=== PATIENT | male | born 1975 | race Caucasian/White ===

== ENCOUNTER 2017-06-16 18:03 | Inpatient (IN) | payer MEDICARE, OTHER ==
[~2017-06-16] VITALS: Ht 188 cm; Wt 126.9 kg
[~2017-06-16 18:03] MED LIST: ACET325 PO; ALBU90OI6 INH; AMIT25; BACL10 PO; BISA10S PR; BUSP10 PO; CEPH500 PO; CYCL10 PO; FLUC200 PO; GABA300 PO; HYDACE5 PO; HYDMOR2 PO; LEVE500 PO; LISI5 PO; LORA.5 PO; LORA1 PO; MELO7.5 PO; METH10 PO; METH5 PO; NAPR500 PO; OXYACE5T PO; Omeprazole20 M1 PO; PANT40 PO; POTCHL20ER PO; PROACE100 PO; PROP10 PO; Percocet 5-3251 EACH PO; RXHYDMOR2 PO; SERT25 PO; SULTRIDS PO; SULTRISS PO; VENL25 PO; XARELTO20 MG PO
[2017-06-16 18:53] LABS: BASOPHILS ABSOLUTE AUTO 0.07 K/mm3 (0.00-0.23); BASOPHILS PERCENT AUTO 0 % (0-2); EOSINOPHILS ABSOLUTE AUTO 0.01 K/mm3 (0.00-0.68); EOSINOPHILS PERCENT AUTO 0 % (0-6); Hemoglobin 17.5 g/dL (13.5-17.5); IMMATURE GRAN ABSOLUTE AUTO 0.37 K/mm3 (0.00-0.10); IMMATURE GRAN PERCENT AUTO 2 % (0-1); LYMPHOCYTES ABSOLUTE AUTO 3.14 K/mm3 (0.84-5.20); LYMPHOCYTES PERCENT AUTO 14 % (21-46); MONOCYTES PERCENT AUTO 9 % (4-13); Mean Corpuscular HGB 28.1 pg (26.0-34.0); Mean Corpuscular HGB Conc 31.7 g/dL (31.5-36.5); Mean Corpuscular Volume 89 fL (80-100); Mean Platelet Volume 11.9 fL (9.1-12.4); NEUTROPHILS ABSOLUTE AUTO 16.43 K/mm3 (1.96-9.15); NEUTROPHILS PERCENT AUTO 75 % (41-73); NRBC ABSOLUTE 0.05 K/mm3 (0.00-0.02); NRBC Auto 0.2 /100 WBC (0.0-0.2); Platelet Count 253 K/mm3 (150-400); RDW Coefficient Variation 14.1 % (11.7-14.2); RDW Standard Deviation 44.3 fL (35.1-46.3); Red Blood Cell Count 6.23 M/mm3 (4.30-5.90); White Blood Cell Count 21.92 K/mm3 (4.00-11.30)
[2017-06-16 19:09] LABS: U Amphetamine Screen Not Detected; U Barbituate Screen Not Detected; U Benzodiazapine Screen Not Detected; U Buprenorphine Screen Not Detected; U Cannabinoids Screen DETECTED; U Cocaine Screen Not Detected; U Methadone Screen DETECTED; U Methamphetamine Screen Not Detected; U Opiates Screen Not Detected; U Oxycodone Screen Not Detected; U Phencyclidine Screen Not Detected; U Propoxyphene Screen Not Detected
[2017-06-16 19:12] LABS: Hematocrit 55.2 % (37.0-53.0)
[2017-06-16 19:16] LABS: Anion Gap 7 mmol/L (6-16); Blood Urea Nitrogen 19 mg/dL (8-24); Bun/Creatinine Ratio 8.8 (12.0-20.0); CO2, Blood 26 mmol/L (21-32); Calcium, Blood 8.6 mg/dL (8.5-10.1); Chloride, Blood 104 mmol/L (98-108); Creatinine, Blood 2.15 mg/dL (0.60-1.20); Glomerular Filtration Rate 36 (60-); Glucose, Blood 108 mg/dL (70-99); Potassium, Blood 4.7 mmol/L (3.5-5.5); Sodium, Blood 137 mmol/L (136-145); Troponin I 0.284 ng/mL (0.000-0.040)
[2017-06-16 19:35] LABS: Alanine Aminotransfer (ALT/SGP 27 U/L (12-78); Albumin, Blood 4.5 g/dL (3.4-5.0); Alk Phos 147 U/L (50-136); Aspartate Aminotrans (AST/SGOT 27 U/L (12-37); Bilirubin, Direct 0.1 mg/dL (0.0-0.3); Bilirubin, Indirect 0.3 mg/dL (0.1-0.7); Bilirubin, Total 0.4 mg/dL (0.1-1.0); Globulin, Blood 4.3 g/dL (2.2-4.0); Salicylate <1.7 mg/dL (2.8-20.0); Total Protein, Blood 8.8 g/dL (6.4-8.2)
[2017-06-16 19:37] LABS: Acetaminophen, Random <2.0 ug/mL (10.0-30.0); Ethanol (Alcohol), Blood, Med <3 mg/dL
[2017-06-16 20:17] LABS: International Normalized Ratio 1.26; Prothrombin Time Results 13.2 Sec (9.7-11.5)
[2017-06-16 21:03] LABS: Source, Urine Clean Catch
[2017-06-16 21:05] LABS: Bilirubin, Urine Neg (Neg); Blood, Urine 2+ (Neg); Glucose Qualitative, Urine Neg (Neg); Ketones, Urine 1+ (Neg); Leukocyte Esterase, Urine Neg (Neg); Nitrite, Urine Neg (Neg); Protein, Urine 3+ (Neg); Specific Gravity, Urine 1.025 (1.003-1.022); Urobilinogen, Urine NORM (Normal)
[2017-06-16 21:17] LABS: Appearance, Urine Hazy (Clear); Color, Urine Yellow (P-Yellow)
[2017-06-16 21:19] LABS: Amorphous Light (0-Heavy); Bacteria Few /hpf; Squamous Epithelial Cells Few /hpf (Few)
[2017-06-17 06:54] LABS: BASOPHILS ABSOLUTE AUTO 0.04 K/mm3 (0.00-0.23); BASOPHILS PERCENT AUTO 0 % (0-2); EOSINOPHILS ABSOLUTE AUTO 0.01 K/mm3 (0.00-0.68); EOSINOPHILS PERCENT AUTO 0 % (0-6); Hematocrit 47.5 % (37.0-53.0); Hemoglobin 15.1 g/dL (13.5-17.5); IMMATURE GRAN PERCENT AUTO 1 % (0-1); LYMPHOCYTES ABSOLUTE AUTO 4.06 K/mm3 (0.84-5.20); LYMPHOCYTES PERCENT AUTO 26 % (21-46); MONOCYTES ABSOLUTE AUTO 1.47 K/mm3 (0.16-1.47); MONOCYTES PERCENT AUTO 9 % (4-13); Mean Corpuscular HGB 27.6 pg (26.0-34.0); Mean Corpuscular HGB Conc 31.8 g/dL (31.5-36.5); Mean Corpuscular Volume 87 fL (80-100); Mean Platelet Volume 12.2 fL (9.1-12.4); NEUTROPHILS ABSOLUTE AUTO 10.27 K/mm3 (1.96-9.15); NEUTROPHILS PERCENT AUTO 64 % (41-73); Platelet Count 200 K/mm3 (150-400); RDW Coefficient Variation 13.3 % (11.7-14.2); Red Blood Cell Count 5.48 M/mm3 (4.30-5.90); White Blood Cell Count 15.95 K/mm3 (4.00-11.30)
[2017-06-17 07:08] LABS: Anion Gap 5 mmol/L (6-16); Blood Urea Nitrogen 13 mg/dL (8-24); Bun/Creatinine Ratio 13.8 (12.0-20.0); CO2, Blood 27 mmol/L (21-32); Calcium, Blood 7.8 mg/dL (8.5-10.1); Chloride, Blood 108 mmol/L (98-108); Creatinine, Blood 0.94 mg/dL (0.60-1.20); Glomerular Filtration Rate >60 (60-); Glucose, Blood 104 mg/dL (70-99); Sodium, Blood 140 mmol/L (136-145); Troponin I 0.451 ng/mL (0.000-0.040)
[2017-06-17 07:16] LABS: International Normalized Ratio 1.27; Prothrombin Time Results 13.3 Sec (9.7-11.5)
[2017-06-17] MEDS ORDERED: METO10 PO (15:40)
[2017-06-17] MEDS ORDERED: LEVE500 PO (15:42)
[2017-06-18 04:25] LABS: BASOPHILS ABSOLUTE AUTO 0.02 K/mm3 (0.00-0.23); BASOPHILS PERCENT AUTO 0 % (0-2); EOSINOPHILS ABSOLUTE AUTO 0.05 K/mm3 (0.00-0.68); EOSINOPHILS PERCENT AUTO 0 % (0-6); Hematocrit 44.7 % (37.0-53.0); Hemoglobin 14.4 g/dL (13.5-17.5); IMMATURE GRAN ABSOLUTE AUTO 0.08 K/mm3 (0.00-0.10); IMMATURE GRAN PERCENT AUTO 1 % (0-1); LYMPHOCYTES ABSOLUTE AUTO 3.44 K/mm3 (0.84-5.20); LYMPHOCYTES PERCENT AUTO 25 % (21-46); MONOCYTES ABSOLUTE AUTO 1.07 K/mm3 (0.16-1.47); MONOCYTES PERCENT AUTO 8 % (4-13); Mean Corpuscular HGB 27.6 pg (26.0-34.0); Mean Corpuscular HGB Conc 32.2 g/dL (31.5-36.5); Mean Corpuscular Volume 86 fL (80-100); Mean Platelet Volume 11.8 fL (9.1-12.4); NEUTROPHILS ABSOLUTE AUTO 8.93 K/mm3 (1.96-9.15); NEUTROPHILS PERCENT AUTO 66 % (41-73); Platelet Count 204 K/mm3 (150-400); RDW Coefficient Variation 13.1 % (11.7-14.2); RDW Standard Deviation 40.8 fL (35.1-46.3); Red Blood Cell Count 5.21 M/mm3 (4.30-5.90); White Blood Cell Count 13.59 K/mm3 (4.00-11.30)
[2017-06-18 04:41] LABS: LDL/HDL RATIO 1.9; Magnesium, Blood 2.1 mg/dL (1.6-2.4)
[2017-06-18 04:42] LABS: Alanine Aminotransfer (ALT/SGP 20 U/L (12-78); Albumin, Blood 3.3 g/dL (3.4-5.0); Albumin/Globulin Ratio 0.8 (0.8-1.8); Alk Phos 88 U/L (50-136); Anion Gap 8 mmol/L (6-16); Aspartate Aminotrans (AST/SGOT 20 U/L (12-37); Bilirubin, Total 0.8 mg/dL (0.1-1.0); Blood Urea Nitrogen 8 mg/dL (8-24); Bun/Creatinine Ratio 10.7 (12.0-20.0); CHOL/HDL RATIO 3.3; CO2, Blood 30 mmol/L (21-32); Calcium, Blood 8.3 mg/dL (8.5-10.1); Chloride, Blood 103 mmol/L (98-108); Cholesterol 167 mg/dL (50-200); Creatinine, Blood 0.75 mg/dL (0.60-1.20); Globulin, Blood 3.9 g/dL (2.2-4.0); Glomerular Filtration Rate >60 (60-); Glucose, Blood 97 mg/dL (70-99); HDL Cholesterol 51 mg/dL (>39); Low Density Lipoprotein Chol 97 mg/dL (0-110); Potassium, Blood 3.9 mmol/L (3.5-5.5); Sodium, Blood 141 mmol/L (136-145); Total Protein, Blood 7.2 g/dL (6.4-8.2); Triglycerides 94 mg/dL (30-160); Very Low Density Lipoprot Chol 18 mg/dL (6-32)
[2017-06-19 04:34] LABS: BASOPHILS ABSOLUTE AUTO 0.03 K/mm3 (0.00-0.23); BASOPHILS PERCENT AUTO 0 % (0-2); EOSINOPHILS ABSOLUTE AUTO 0.18 K/mm3 (0.00-0.68); EOSINOPHILS PERCENT AUTO 2 % (0-6); Hematocrit 47.6 % (37.0-53.0); Hemoglobin 15.2 g/dL (13.5-17.5); IMMATURE GRAN ABSOLUTE AUTO 0.04 K/mm3 (0.00-0.10); IMMATURE GRAN PERCENT AUTO 0 % (0-1); LYMPHOCYTES ABSOLUTE AUTO 3.66 K/mm3 (0.84-5.20); LYMPHOCYTES PERCENT AUTO 34 % (21-46); MONOCYTES ABSOLUTE AUTO 0.89 K/mm3 (0.16-1.47); MONOCYTES PERCENT AUTO 8 % (4-13); Mean Corpuscular HGB 28.3 pg (26.0-34.0); Mean Corpuscular HGB Conc 31.9 g/dL (31.5-36.5); Mean Platelet Volume 11.5 fL (9.1-12.4); NEUTROPHILS ABSOLUTE AUTO 6.08 K/mm3 (1.96-9.15); NEUTROPHILS PERCENT AUTO 56 % (41-73); Platelet Count 202 K/mm3 (150-400); RDW Coefficient Variation 13.3 % (11.7-14.2); RDW Standard Deviation 42.9 fL (35.1-46.3); Red Blood Cell Count 5.38 M/mm3 (4.30-5.90); White Blood Cell Count 10.88 K/mm3 (4.00-11.30)
[2017-06-19 04:35] LABS: Mean Corpuscular Volume 89 fL (80-100)
[2017-06-19 04:59] LABS: Alanine Aminotransfer (ALT/SGP 23 U/L (12-78); Albumin, Blood 3.7 g/dL (3.4-5.0); Albumin/Globulin Ratio 0.9 (0.8-1.8); Alk Phos 90 U/L (50-136); Anion Gap 4 mmol/L (6-16); Aspartate Aminotrans (AST/SGOT 22 U/L (12-37); Bilirubin, Total 0.8 mg/dL (0.1-1.0); Blood Urea Nitrogen 9 mg/dL (8-24); Bun/Creatinine Ratio 11.7 (12.0-20.0); CO2, Blood 36 mmol/L (21-32); Calcium, Blood 8.6 mg/dL (8.5-10.1); Chloride, Blood 101 mmol/L (98-108); Creatinine, Blood 0.77 mg/dL (0.60-1.20); Globulin, Blood 4.3 g/dL (2.2-4.0); Glomerular Filtration Rate >60 (60-); Glucose, Blood 87 mg/dL (70-99); Potassium, Blood 4.1 mmol/L (3.5-5.5); Sodium, Blood 141 mmol/L (136-145)
[2017-06-19] MEDS ORDERED: BUSP10 PO (11:25)
[2017-06-19] MEDS ORDERED: DULO30 PO (11:26)
[2017-06-19] MEDS ORDERED: FLUC200 PO (11:27)
[2017-06-19] MEDS ORDERED: Omeprazole20 M1 PO (11:29)
[2017-06-19] MEDS ORDERED: LEVFLO500 PO (11:29)
== END 2017-06-19 13:10 | disposition home or self-care (01) | DRG 917 ==
LOC: ER 18:03 → ICUW 20:28 → ICUE 20:28 → SURS 06-18 10:28
PROVIDERS: Emergency Medicine; Hospitalist; Internal Medicine
DX: T40.3X1A Poisoning by methadone, accidental (unintentional), initial encounter (principal); J18.9 Pneumonia, unspecified organism; G03.8 Meningitis due to other specified causes; N17.9 Acute kidney failure, unspecified; G40.909 Epilepsy, unspecified, not intractable, without status epilepticus; I10 Essential (primary) hypertension; G62.9 Polyneuropathy, unspecified; R09.02 Hypoxemia; K21.9 Gastro-esophageal reflux disease without esophagitis; F32.9 Major depressive disorder, single episode, unspecified; E66.9 Obesity, unspecified; Z68.38 Body mass index [BMI] 38.0-38.9, adult; Z86.718 Personal history of other venous thrombosis and embolism; Z88.5 Allergy status to narcotic agent; Z88.0 Allergy status to penicillin; Z88.2 Allergy status to sulfonamides; Z79.01 Long term (current) use of anticoagulants; Z79.899 Other long term (current) drug therapy
CPT/HCPCS: 36415; 36569; 51702; 71045; 80048; 80053; 80061; 80076; 81001; 83605; 83735; 84443; 84484; 85025; 85610; 85730; 93005; 93010; 96374; 96376; 99291; 99292; C1751; C8929; G0480; J0360; J2060; J2310; J2405; J2543; J2765; J3480; J7030; Q3014; Q9957

== ENCOUNTER 2018-03-16 18:42 | Emergency (ER) | payer MEDICARE, OTHER ==
[~2018-03-16] VITALS: Ht 188 cm; Wt 122.5 kg
[~2018-03-16 18:42] MED LIST changes: +DULO30 PO; +LEVFLO500 PO; +METO10 PO
[2018-03-16 19:42] LABS: Source, Urine Clean Catch
[2018-03-16 19:45] LABS: Appearance, Urine Clear (Clear); Blood, Urine Neg (Neg); Color, Urine Amber (P-Yellow); Glucose Qualitative, Urine Neg (Neg); Ketones, Urine 1+ (Neg); Leukocyte Esterase, Urine 1+ (Neg); Nitrite, Urine Neg (Neg); Protein, Urine 2+ (Neg); Specific Gravity, Urine 1.025 (1.003-1.022); Urobilinogen, Urine 1+ (Normal)
[2018-03-16 19:51] LABS: Bilirubin, Urine 1+ (Neg); Red Blood Cells, Urine 0-2 /hpf (0-2); White Blood Cells, Urine 0-2 /hpf (0-5)
[2018-03-16 19:52] LABS: Bacteria Mod /hpf; Squamous Epithelial Cells Not Seen /hpf (Few)
[2018-03-16 20:13] LABS: BASOPHILS ABSOLUTE AUTO 0.02 K/mm3 (0.00-0.23); BASOPHILS PERCENT AUTO 0 % (0-2); EOSINOPHILS ABSOLUTE AUTO 0.06 K/mm3 (0.00-0.68); EOSINOPHILS PERCENT AUTO 1 % (0-6); Hemoglobin 16.1 g/dL (13.5-17.5); IMMATURE GRAN ABSOLUTE AUTO 0.01 K/mm3 (0.00-0.10); IMMATURE GRAN PERCENT AUTO 0 % (0-1); LYMPHOCYTES ABSOLUTE AUTO 2.57 K/mm3 (0.84-5.20); LYMPHOCYTES PERCENT AUTO 51 % (21-46); MONOCYTES ABSOLUTE AUTO 0.47 K/mm3 (0.16-1.47); MONOCYTES PERCENT AUTO 9 % (4-13); Mean Corpuscular HGB 29.2 pg (26.0-34.0); Mean Corpuscular HGB Conc 32.9 g/dL (31.5-36.5); Mean Corpuscular Volume 89 fL (80-100); Mean Platelet Volume 11.9 fL (9.1-12.4); NEUTROPHILS ABSOLUTE AUTO 1.94 K/mm3 (1.96-9.15); NEUTROPHILS PERCENT AUTO 38 % (41-73); Platelet Count 153 K/mm3 (150-400); RDW Coefficient Variation 12.7 % (11.7-14.2); Red Blood Cell Count 5.51 M/mm3 (4.30-5.90); White Blood Cell Count 5.07 K/mm3 (4.00-11.30)
[2018-03-16 20:49] LABS: Alanine Aminotransfer (ALT/SGP 32 U/L (12-78); Albumin, Blood 4.4 g/dL (3.4-5.0); Albumin/Globulin Ratio 1.2 (0.8-1.8); Alk Phos 110 U/L (50-136); Anion Gap 6 mmol/L (6-16); Aspartate Aminotrans (AST/SGOT 23 U/L (12-37); Bilirubin, Total 0.4 mg/dL (0.1-1.0); Blood Urea Nitrogen 10 mg/dL (8-24); Bun/Creatinine Ratio 11.7 (12.0-20.0); CO2, Blood 31 mmol/L (21-32); Calcium, Blood 8.6 mg/dL (8.5-10.1); Chloride, Blood 98 mmol/L (98-108); Creatinine, Blood 0.86 mg/dL (0.60-1.20); Globulin, Blood 3.7 g/dL (2.2-4.0); Glomerular Filtration Rate >60 (60-); Glucose, Blood 80 mg/dL (70-99); Potassium, Blood 3.5 mmol/L (3.5-5.5); Sodium, Blood 135 mmol/L (136-145); Total Protein, Blood 8.1 g/dL (6.4-8.2)
[2018-03-16] MEDS ORDERED: LEVE500 PO (21:34)
[2018-03-16] MEDS ORDERED: ZESTORETIC 20-121 EA PO (21:35)
[2018-03-16] MEDS ORDERED: Prednisone50 MG PO (23:13)
[2018-03-16] MEDS ORDERED: CEPH500 PO (23:13)
[2018-03-16] MEDS ORDERED: LIDO700A20 TOP (23:13)
== END 2018-03-16 23:24 | disposition home or self-care (01) ==
LOC: ER 18:42
PROVIDERS: Emergency Medicine
DX: N39.0 Urinary tract infection, site not specified (principal); M62.838 Other muscle spasm; Z88.5 Allergy status to narcotic agent; Z79.899 Other long term (current) drug therapy
CPT/HCPCS: 36415; 80053; 81001; 85025; 87086; 99283

== ENCOUNTER 2018-06-15 13:59 | Emergency (ER) | payer MEDICARE, OTHER ==
[~2018-06-15] VITALS: Ht 185.4 cm; Wt 113.4 kg
[~2018-06-15 13:59] MED LIST changes: +LIDO700A20 TOP; +Prednisone50 MG PO; +ZESTORETIC 20-121 EA PO
[2018-06-15 14:56] LABS: Source, Urine Clean Catch
[2018-06-15 15:10] LABS: Bilirubin, Urine Neg (Neg); Blood, Urine Neg (Neg); Glucose Qualitative, Urine Neg (Neg); Ketones, Urine Neg (Neg); Leukocyte Esterase, Urine Neg (Neg); Nitrite, Urine Neg (Neg); Protein, Urine Neg (Neg); Specific Gravity, Urine 1.005 (1.003-1.022); Urobilinogen, Urine NORM (Normal)
[2018-06-15 15:11] LABS: Appearance, Urine Clear (Clear); Color, Urine Pale Yellow (P-Yellow)
[2018-06-15 15:48] LABS: BASOPHILS ABSOLUTE AUTO 0.06 K/mm3 (0.00-0.23); BASOPHILS PERCENT AUTO 1 % (0-2); EOSINOPHILS ABSOLUTE AUTO 0.19 K/mm3 (0.00-0.68); EOSINOPHILS PERCENT AUTO 2 % (0-6); Hematocrit 49.6 % (37.0-53.0); Hemoglobin 16.3 g/dL (13.5-17.5); IMMATURE GRAN ABSOLUTE AUTO 0.05 K/mm3 (0.00-0.10); IMMATURE GRAN PERCENT AUTO 1 % (0-1); LYMPHOCYTES ABSOLUTE AUTO 3.57 K/mm3 (0.84-5.20); LYMPHOCYTES PERCENT AUTO 33 % (21-46); MONOCYTES ABSOLUTE AUTO 0.76 K/mm3 (0.16-1.47); MONOCYTES PERCENT AUTO 7 % (4-13); Mean Corpuscular HGB 29.7 pg (26.0-34.0); Mean Corpuscular HGB Conc 32.9 g/dL (31.5-36.5); Mean Corpuscular Volume 90 fL (80-100); Mean Platelet Volume 11.6 fL (9.1-12.4); NEUTROPHILS ABSOLUTE AUTO 6.09 K/mm3 (1.96-9.15); NEUTROPHILS PERCENT AUTO 57 % (41-73); Platelet Count 193 K/mm3 (150-400); RDW Coefficient Variation 12.9 % (11.7-14.2); RDW Standard Deviation 42.4 fL (35.1-46.3); Red Blood Cell Count 5.49 M/mm3 (4.30-5.90); White Blood Cell Count 10.72 K/mm3 (4.00-11.30)
[2018-06-15 16:03] LABS: International Normalized Ratio 1.25
[2018-06-15 16:09] LABS: Alanine Aminotransfer (ALT/SGP 26 U/L (12-78); Albumin, Blood 4.3 g/dL (3.4-5.0); Albumin/Globulin Ratio 1.3 (0.8-1.8); Alk Phos 106 U/L (50-136); Anion Gap 6 mmol/L (6-16); Aspartate Aminotrans (AST/SGOT 18 U/L (12-37); Bilirubin, Total 0.9 mg/dL (0.1-1.0); Blood Urea Nitrogen 7 mg/dL (8-24); Bun/Creatinine Ratio 10.9 (12.0-20.0); CO2, Blood 34 mmol/L (21-32); Calcium, Blood 9.2 mg/dL (8.5-10.1); Chloride, Blood 101 mmol/L (98-108); Creatinine, Blood 0.64 mg/dL (0.60-1.20); Globulin, Blood 3.4 g/dL (2.2-4.0); Glomerular Filtration Rate >60 (60-); Glucose, Blood 74 mg/dL (70-99); Potassium, Blood 3.5 mmol/L (3.5-5.5); Sodium, Blood 141 mmol/L (136-145); Total Protein, Blood 7.7 g/dL (6.4-8.2)
== END 2018-06-15 16:49 | disposition home or self-care (01) ==
LOC: ER 13:59
PROVIDERS: Emergency Medicine
DX: S06.9X9A Unspecified intracranial injury with loss of consciousness of unspecified duration, initial encounter (principal); W18.30XA Fall on same level, unspecified, initial encounter; Z88.5 Allergy status to narcotic agent; Z79.899 Other long term (current) drug therapy; Z79.52 Long term (current) use of systemic steroids
CPT/HCPCS: 36415; 70250; 70450; 71045; 72125; 74018; 80053; 81003; 85025; 85610; 85730; 93005; 93010; 99284-25

== ENCOUNTER 2018-11-15 11:37 | Emergency (ER) | payer MEDICARE, OTHER ==
[~2018-11-15] VITALS: Ht 185.4 cm; Wt 102.1 kg
[2018-11-15] MEDS ORDERED: [UNRECOGNIZED DRUG - OTHER] (11:48)
== END 2018-11-15 13:35 | disposition home or self-care (01) ==
LOC: ER 11:37
DX: S01.311A Laceration without foreign body of right ear, initial encounter (principal); Z98.2 Presence of cerebrospinal fluid drainage device; Z88.5 Allergy status to narcotic agent; Z79.899 Other long term (current) drug therapy; Z79.01 Long term (current) use of anticoagulants; W01.0XXA Fall on same level from slipping, tripping and stumbling without subsequent striking against object, initial encounter
CPT/HCPCS: 12011; 99282-25

== ENCOUNTER 2019-06-20 21:52 | Inpatient (IN) | payer MEDICARE, OTHER ==
[~2019-06-20] VITALS: Ht 188 cm; Wt 97.1 kg
[~2019-06-20 21:52] MED LIST changes: +[UNRECOGNIZED DRUG - OTHER]
[2019-06-20 22:38] LABS: BASOPHILS ABSOLUTE AUTO 0.06 K/mm3 (0.00-0.23); BASOPHILS PERCENT AUTO 1 % (0-2); EOSINOPHILS PERCENT AUTO 2 % (0-6); Hematocrit 35.5 % (37.0-53.0); Hemoglobin 9.9 g/dL (13.5-17.5); IMMATURE GRAN ABSOLUTE AUTO 0.07 K/mm3 (0.00-0.10); IMMATURE GRAN PERCENT AUTO 1 % (0-1); LYMPHOCYTES ABSOLUTE AUTO 3.97 K/mm3 (0.84-5.20); LYMPHOCYTES PERCENT AUTO 30 % (21-46); MONOCYTES PERCENT AUTO 8 % (4-13); Mean Corpuscular HGB 21.9 pg (26.0-34.0); Mean Corpuscular HGB Conc 27.9 g/dL (31.5-36.5); Mean Corpuscular Volume 78 fL (80-100); Mean Platelet Volume 10.6 fL (9.1-12.4); NEUTROPHILS ABSOLUTE AUTO 7.83 K/mm3 (1.96-9.15); NEUTROPHILS PERCENT AUTO 59 % (41-73); Platelet Count 322 K/mm3 (150-400); RDW Coefficient Variation 14.9 % (11.7-14.2); RDW Standard Deviation 42.6 fL (35.1-46.3); Red Blood Cell Count 4.53 M/mm3 (4.30-5.90); White Blood Cell Count 13.23 K/mm3 (4.00-11.30)
[2019-06-20 22:45] LABS: Source, Urine Clean Catch
[2019-06-20 22:52] LABS: Bilirubin, Urine Neg (Neg); Blood, Urine 2+ (Neg); Glucose Qualitative, Urine Neg (Neg); Ketones, Urine 1+ (Neg); Leukocyte Esterase, Urine 1+ (Neg); Nitrite, Urine Neg (Neg); Protein, Urine 1+ (Neg); Urobilinogen, Urine 2+ (Normal)
[2019-06-20 22:53] LABS: Appearance, Urine Clear (Clear); Color, Urine Yellow (P-Yellow)
[2019-06-20 22:55] LABS: Ethanol (Alcohol), Blood, Med <3 mg/dL; Salicylate <1.7 mg/dL (2.8-20.0); Troponin I <0.015 ng/mL (0.000-0.040)
[2019-06-20 22:56] LABS: Alanine Aminotransfer (ALT/SGP 17 U/L (12-78); Albumin, Blood 3.6 g/dL (3.4-5.0); Albumin/Globulin Ratio 1.1 (0.8-1.8); Alk Phos 159 U/L (50-136); Anion Gap 5 mmol/L (6-16); Aspartate Aminotrans (AST/SGOT 9 U/L (12-37); Bilirubin, Total 0.2 mg/dL (0.1-1.0); Blood Urea Nitrogen 10 mg/dL (8-24); Bun/Creatinine Ratio 20.3 (12.0-20.0); CO2, Blood 28 mmol/L (21-32); Calcium, Blood 8.2 mg/dL (8.5-10.1); Chloride, Blood 106 mmol/L (98-108); Creatinine, Blood 0.49 mg/dL (0.60-1.20); Globulin, Blood 3.2 g/dL (2.2-4.0); Glomerular Filtration Rate >60 (60-); Glucose, Blood 122 mg/dL (70-99); Potassium, Blood 3.4 mmol/L (3.5-5.5); Sodium, Blood 139 mmol/L (136-145); Total Protein, Blood 6.8 g/dL (6.4-8.2)
[2019-06-20 22:57] LABS: Bacteria Mod /hpf; Squamous Epithelial Cells Few /hpf (Few)
[2019-06-20 22:57] LABS: Acetaminophen, Random <2.0 ug/mL (10.0-30.0)
[2019-06-20 23:02] LABS: U Amphetamine Screen Not Detected; U Barbituate Screen Not Detected; U Benzodiazapine Screen Not Detected; U Buprenorphine Screen Not Detected; U Cannabinoids Screen DETECTED; U Cocaine Screen Not Detected; U Methadone Screen Not Detected; U Methamphetamine Screen Not Detected; U Opiates Screen Not Detected; U Oxycodone Screen Not Detected; U Phencyclidine Screen DETECTED; U Propoxyphene Screen Not Detected
[2019-06-20 23:54] LABS: International Normalized Ratio 1.07; Prothrombin Time Results 11.4 Sec (9.7-11.5)
[2019-06-21] MEDS ORDERED: GABA300 PO (00:03)
[2019-06-21] MEDS ORDERED: TRAZ100 PO (00:03)
[2019-06-21] MEDS ORDERED: OMEP20ER PO (00:04)
[2019-06-21] MEDS ORDERED: Diflucan100 MG PO (00:04)
[2019-06-21] MEDS ORDERED: Lamictal150 MG PO (00:04)
[2019-06-21] MEDS ORDERED: Keppra1000 MG PO (00:05)
[2019-06-21] MEDS ORDERED: HYDPAM50 PO (00:05)
[2019-06-21] MEDS ORDERED: XARELTO20 MG PO (01:45)
[2019-06-21] MEDS ORDERED: Flomax0.4 MG PO (01:46)
[2019-06-21] MEDS ORDERED: PANT40 PO (01:46)
[2019-06-21] MEDS ORDERED: BUSP10 PO (01:46)
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
--- NOTE | 2019-06-21 06:15 | NUR ---
RADIOLAGY HERE TO GET JULIANN FOR CT SCAN.
--- NOTE | 2019-06-21 06:32 | NUR ---
JULIANN BACK FROM CT. TRANSFERRED BACK INTO BED, WITH C-COLLAR ON. MORNING MEDS GIVEN. LAID PATIENT DOWN BELOW 30 DEGREES, REMOVED C-COLLAR PER HIS REQUEST. CALL LIGHT GIVEN.
--- NOTE | 2019-06-21 06:45 | NUR ---
SHIFT SUMMARY: JULIANN WAS ADMITTED TO THE FLOOR FOR SEIZURES AND BRAIN BLEED. JULIANN HAS SIGNFICANT HISTORY OF NEUROLOGICAL PROBLEMS PLEASE SEE HISTORY. JULIANN IS IN A C-COLLAR FOLLOWING RECENT CERVICAL SURGERY. C-COLLAR IS ON WHEN SITTING ABOVE 30 DEGRESS AND MAY BE REMOVED WHEN BELOW IT. HE IS AOX3. NO CHANGES IN HIS NEURO EXAM FROM HIS BASE LINE. VS HAVE BEEN STABLE. AFEBRILE. PAIN NOTED TO NECK ACUTE ON CHRONIC. TRAMADOL GIVEN WHICH DECREASED HIS PAIN. SWALLOWS PILLS WHOLE WITH WATER. 2 PERSON LOG ROLL. CATHETER REMAINED PATIENT AND DRAINING. MEDS GIVEN PER EMAR. WILL REPORT TO DAY SHIFT RN.
[2019-06-21] MEDS ORDERED: VENL150ER PO (10:22)
[2019-06-21] MEDS ORDERED: OXYC10ER PO (10:24)
--- NOTE | 2019-06-21 19:42 | NUR ---
SHIFT SUMMARY: NO ACUTE CHANGES TO REPORT THIS SHIFT. PT A&O; CALM AND COOPERATIVE WITH CARE. HX FUNGAL MENINGITIS c SHUNTS & SEIZURES. MEDICATED FOR PAIN & ANXIETY PER EMAR. PT WHEELCHAIR BOUND AT BASELINE; C-COLLAR IN PLACE WHEN UPPER BODY ELEVATED ABOVE 30 DEGREES & WHEN ROLLING ON & OFF BEDPAN. NEWTON IN PLACE; PATIENT USES CONDOM CATH @ HOME. PT RESIDES WITH CAREGIVERS; PT DESIRES TO PURSUE PLACEMENT. REPORT GIVEN TO ONCOMING RN.
[2019-06-22 05:17] LABS: Hematocrit 34.1 % (37.0-53.0); Hemoglobin 9.3 g/dL (13.5-17.5); Mean Corpuscular HGB 21.4 pg (26.0-34.0); Mean Corpuscular HGB Conc 27.3 g/dL (31.5-36.5); Mean Corpuscular Volume 78 fL (80-100); Mean Platelet Volume 11.2 fL (9.1-12.4); Platelet Count 290 K/mm3 (150-400); RDW Standard Deviation 42.7 fL (35.1-46.3); Red Blood Cell Count 4.35 M/mm3 (4.30-5.90); White Blood Cell Count 8.78 K/mm3 (4.00-11.30)
[2019-06-22 05:39] LABS: Anion Gap 4 mmol/L (6-16); Blood Urea Nitrogen 10 mg/dL (8-24); Bun/Creatinine Ratio 16.1 (12.0-20.0); CO2, Blood 32 mmol/L (21-32); Calcium, Blood 8.4 mg/dL (8.5-10.1); Chloride, Blood 105 mmol/L (98-108); Creatinine, Blood 0.62 mg/dL (0.60-1.20); Glomerular Filtration Rate >60 (60-); Glucose, Blood 97 mg/dL (70-99); Potassium, Blood 3.9 mmol/L (3.5-5.5); Sodium, Blood 141 mmol/L (136-145)
--- NOTE | 2019-06-22 06:01 | NUR ---
SUMMARY PT HAD NO ISSUES NOTED. PT HAS SLEPT W/ OUT ISSUE T/O SHIFT. PT CURRENTLY SLEEPING IN NO DISTRESS. CALL LIGHT IN REACH.
--- NOTE | 2019-06-22 17:36 | NUR ---
SHIFT SUMMARY PATIENT MEDICATED X1 FOR PAIN. DENIES NAUSEA AND SHORTNESS OF RBEATH. PATIENT UP IN CHAIR WITH LIFT. PATIENT WORKED WITH PT TODAY BUT WAS TOO TIRED AFTER TO WORK WITH OT. PATIENT WEARING BRACE/C-COLLAR. NEWTON DC'D, CONDOM CATH IN PLACE. PATIENT HAS NO IV ACCESS ORDER. PATIENT AWAITING PLACEMENT.
[2019-06-23 04:36] LABS: Hematocrit 34.9 % (37.0-53.0); Hemoglobin 9.8 g/dL (13.5-17.5); Mean Corpuscular HGB 21.5 pg (26.0-34.0); Mean Corpuscular HGB Conc 28.1 g/dL (31.5-36.5); Mean Corpuscular Volume 77 fL (80-100); Mean Platelet Volume 10.9 fL (9.1-12.4); Platelet Count 285 K/mm3 (150-400); RDW Coefficient Variation 14.8 % (11.7-14.2); RDW Standard Deviation 40.8 fL (35.1-46.3); Red Blood Cell Count 4.55 M/mm3 (4.30-5.90); White Blood Cell Count 9.79 K/mm3 (4.00-11.30)
--- NOTE | 2019-06-23 05:00 | NUR ---
BUSINESS TECHNOLOGY TEACHER SUMMARY PATIENT AWAKE ALL NIGHT COUGHING A STRONG BARKING DRY COUGH. TRIED GUAFENISEN TESSALON PEARLS AND EVENTUALLY GUAFENNISEN AC WITH MEHREEN. THIS LAST MEDICATION DID AT LEAST SLOW DOWN HIS COUGH. LOW GRADE FEVER AROUND 0400 OF 100.1, APAP GIVEN AND THERMOSTAT DROPPED. NO COMPLAINTS OF DISCOMFORT OR PAIN, SOB OVERNIGHT.
[2019-06-23 05:01] LABS: Percent Saturation 4.6 % (20.0-50.0)
--- NOTE | 2019-06-23 07:37 | NUR ---
FINANCIAL INTERN SUMMARY Patient slept well overnight. Minimal aches at HS, but did not want to take anything for them. Slept with C Collar off at an angle of less than 30 degrees. Voiding clear yellow urine into a condom cath. Last bowel movement was 06/20. Eating and drinking well. No complaints
--- NOTE | 2019-06-23 17:38 | NUR ---
SHIFT SUMMARY PATIENT DENIES PAIN, NAUSEA, AND SHORTNESS OF BREATH. PATIENT UP IN CHAIR VIA LIFT. PATIENT UP IN CHAIR ALL DAY. C-COLLAR AND BRACE IN PLACE. PATIENT PLEASANT AND COOPERATIVE WITH CARE.
--- NOTE | 2019-06-24 00:08 | NUR ---
Patient feeling constipated. unable to have bowel movement after two tries on commode then bedpan. No stool since 06/20. Milk of Mag given per EMAR.
--- NOTE | 2019-06-24 06:43 | NUR ---
CAMPUS SAFETY OFFICER SUMMARY Patient slept well after receiving oxycodone for 09/15 posterior neck pain with his HS meds. He was able to actually participate in transfer out of chair and into bed with two person strong assist. Patient feeling as he is constipated and unable after two attempts to have bowel mvmt. Milk of mag given at bedtime for (hopefully relief today). Hoping to go to [facility] today
[2019-06-24] MEDS ORDERED: IRON150C PO (12:39)
[2019-06-24] MEDS ORDERED: OXYC10TA19 PO (12:42)
--- NOTE | 2019-06-24 13:30 | NUR ---
A+O, ASSISTED TO TRANSPORT WC AND DOWN TO EXIT WHERE TRANSPORT WAS WAITING, HAD CALLED REPORT TO UV, REVIEWED VISIT AND DISCHARGE INSTRUCTIONS WITH PT, reminded transport of condom cath
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
--- NOTE | 2019-06-25 04:27 | NUR ---
SHIFT SUMMARY ADMITTED FOR SEIZURES. FULL CODE. HE IS HOPEFUL FOR PLACEMENT IN A SNF. HE WAS SENT TO [facility] TODAY, BUT RETURNED IMMEDIATELY DUE TO THEIR EQUIPMENT REGISTERING A "FEVER". WHEN HE WAS RETURNED HERE, OUR ORAL THERMOMETER DID NOT SHOW A FEVER. HE HAS HAD A LAUNDRY MACHINE TENDER SHUNT, AND A REVISION OF IT JUST RECENTLY. SINCE THAT SURGERY HE HAS BEEN WEAK. HE IS WHEELCHAIR BOUND AT BASELINE. IF HE LIES DOWN AT LESS THAN 30 DEGREES HE DOES NOT HAVE TO WEAR HIS SPECIAL C-COLLAR AND CHESTPLATE, GREATER THAN THAT HE MUST WEAR IT. HE WEARS A CONDOM CATH, IS ON RA, CAN TAKE HIS MEDS WITH WATER, HE IS A&O X4. HX: SEIZURES, FUNGAL MENINGITIS, DEPRESSION, NEUROPATHY, HTN, PE, DVT'S, GERD, GASTROPARESIS.
--- NOTE | 2019-06-25 19:57 | NUR ---
a+o, 2 persons assist to transfer, rm air, feeds self, pills whole with water, call light in reach, sitting up in chair watching tv, large bm today, after mom, irene and a supository, cooperative, looking for placement
--- NOTE | 2019-06-26 07:10 | NUR ---
SHIFT SUMMARY PATIENT ALERT AND ORIENTED. MEDICATED FOR ANXIETY PER EMAR AT PATIENT REQUEST. NEWTON PATENT AND FLOWING TO GRAVITY. PATIENT SLEPT WELL OVERNIGHT. BED IN LOWEST POSITION WITH WHEELS LOCKED. CALL LIGHT WITHIN REACH. REPORT GIVEN TO ONCOMING RN.
--- NOTE | 2019-06-26 17:15 | NUR ---
sitting in chair with brace, needed extra snack ordered from kitchen since regular tray not sufficent to fill, call light in reach, rm air no order for IV, cheerful and cooperative with staff, will continue to monitor and treat until share bsr with noc shift and pt
--- NOTE | 2019-06-27 06:43 | NUR ---
SHIFT SUMMARY PATIENT ALERT AND ORIENTED. ABLE TO TRANSFER FROM CHAIR TO BED FAIRLY WITH WITH A TWO PERSON ASSIST. PATIENT SLEPT WELL ALL NIGHT. CONDOM CATH IN PLACE AND IS DRAINING. BED IN LOWEST POSITION WITH WHEELS LOCKED. CALL LIGHT AND BELONGINGS NATO LOPEZ. REPORT GIVEN TO ONCOMING RN.
--- NOTE | 2019-06-27 18:28 | NUR ---
SHIFT SUMMARY PT AXO, PLEASANT AND COOPERATIVE WITH CARE. PATIENT MEDICATED PER EMAR FOR PAIN AND (SELF REPORTED AGGITATION/ ANXIETY). NO ACUTE CHANGES THIS SHIFT. PT UP TO A RECLINER THROUGHOUT THE DAY. CONDOM CATH IN PLACE, PATENT AND DRAINING. NO IV IN PLACE. PT WEARING C-COLLAR/BRACE WHILE OOB. BED IN LOW POSITION, CALL LIGHT WITHIN REACH. PT MEDICATED FOR CONSTIPATION PER EMAR.
--- NOTE | 2019-06-27 20:42 | NUR ---
ASSUMED CARE. JULIANN SITTING UP IN CHAIR, NECK AND SHOULDER BRACE IS IN PLACE. STATES PAIN IS GOOD AT THIS TIME. NEURO CHECKS ARE WITH IN PATIENTS BASE LINE. DENIED HEADACHE AT THIS TIME, NO SEIZURES. LUNG SOUNDS ARE CLEAR, HR REGULAR. NO SKIN ISSUES TO NOTE. SLIGHTLY CONSTIPATED, ENCOURAGED FLUIDS AND STOOL SOFTNERS. ADMINISTERED MEDICATIONS, ABLE TO SWALLOW ALL AT ONCE WITH WATER. ASSISTED HIM TO BED, WITH USE OF WALKER. ABLE TO STAND WITH SBA, AND WALK SLOWLY TO THE BED. ONCE IN BED REMOVED NECK AND SHOULDER BRACE, BED PLACED AT 24 DEGREES PER PATIENT REQUEST. CALL LIGHT GIVEN. WILL CONTINUE TO MONITOR.
--- NOTE | 2019-06-27 22:45 | NUR ---
JULIANN IS LAYING IN BED WATCHING TV. DENIES ANY NEEDS AT THIS TIME. CALL LIGHT IN REACH.
--- NOTE | 2019-06-28 00:03 | NUR ---
ADMINISTERED NIGHT MEDS. REPOSITIONED CATHETER FOR BETTER FLOW. EMPTIED OUT 850CC OF URINE. NO OTHER NEEDS NOTED. PLANS ON GOING TO SLEEP FOR REST OF THE NIGHT. CALL LIGHT IN REACH.
--- NOTE | 2019-06-28 03:45 | NUR ---
SLEEPING NO CHANGES. CALL LIGHT IN REACH.
--- NOTE | 2019-06-28 05:42 | NUR ---
SHIFT SUMMARY: JULIANN HAD AN UNEVENTFUL NIGHT. HE SAT UP IN THE CHAIR FOR AWHILE, BEFORE LAYING DOWN FOR THE NIGHT. REMAINED SEIZURE FREE. NO PAIN THIS SHIFT. USES BRACE WHEN UP, AND LAYS WITH OUT BRACE WHEN LAYING BELOW 30 DEGREES. VS WNL. AFEBRILE. MEDS PER EMAR. CONDOM CATH WAS CHANGED SEVERAL TIMES DUE TO FALLING OFF. GOOD OUTPUT NOTED. APPETITE GOOD. AWAITING DISCHARGE TO SNF. WILL REPORT TO DAY SHIFT.
--- NOTE | 2019-06-28 16:01 | NUR ---
DISCHARGE SUMMARY PT DISCHARGED TO [facility]. PT LEFT ROOM PRIOR TO THIS NOTE VIA WHEELCHAIR WITH IV THERAPY NURSE ESCORT TO TRANSPORT TEAM AT ER ENTRANCE. REPORT CALLED TO [facility], MARIANNE AT 1549. DISCHARGE TEACHING COMPLETED WITH PATIENT, ALL QUESTIONS ANSWERED. MARIANNE AT [facility] NOTIFIED OF PATIENT APPOINTMENT WITH PCP. PT STATED THAT HE WOULD NOTIFY HIS FAMILY OF HIS TRANSFER TO [facility].
== END 2019-06-28 15:45 | DRG 101 ==
LOC: ER 21:52 → MEDS 21:53
PROVIDERS: Emergency Medicine; Internal Medicine; ADMIT Internal Medicine
DX: G40.909 Epilepsy, unspecified, not intractable, without status epilepticus (principal); I62.9 Nontraumatic intracranial hemorrhage, unspecified; F32.9 Major depressive disorder, single episode, unspecified; K21.9 Gastro-esophageal reflux disease without esophagitis; Z86.718 Personal history of other venous thrombosis and embolism; I10 Essential (primary) hypertension; G62.9 Polyneuropathy, unspecified; Z98.1 Arthrodesis status; D72.829 Elevated white blood cell count, unspecified; G89.29 Other chronic pain; D50.9 Iron deficiency anemia, unspecified; Z98.2 Presence of cerebrospinal fluid drainage device; Z99.3 Dependence on wheelchair; Z86.711 Personal history of pulmonary embolism; Z91.14 Patient's other noncompliance with medication regimen; Z79.01 Long term (current) use of anticoagulants; F12.90 Cannabis use, unspecified, uncomplicated
CPT/HCPCS: 36415; 51702; 70250; 70450; 71045; 74018; 80048; 80053; 80177; 81001; 82728; 83540; 83550; 83880; 84484; 85025; 85027; 85610; 85730; 87086; 90686; 93005; 93010; 96374; 96375; 97110; 97162; 97166; 97530; 97535; 99285-25; C9132; G0008; G0378; G0480; J1953; J2060; J3010

== ENCOUNTER → 2019-07-11 | Outpatient (CLI) | payer MEDICARE, OTHER ==
[~2019-07-11] MED LIST changes: +Diflucan100 MG PO; +Flomax0.4 MG PO; +HYDPAM50 PO; +IRON150C PO; +Keppra1000 MG PO; +Lamictal150 MG PO; +OMEP20ER PO; +OXYC10ER PO; +OXYC10TA19 PO; +TRAZ100 PO; +VENL150ER PO
[2019-07-11 17:04] LABS: Bilirubin, Urine Neg (Neg); Blood, Urine 5+ (Neg); Glucose Qualitative, Urine Neg (Neg); Ketones, Urine Neg (Neg); Leukocyte Esterase, Urine 2+ (Neg); Nitrite, Urine Pos (Neg); Protein, Urine 1+ (Neg); Urobilinogen, Urine NORM (Normal)
[2019-07-11 17:13] LABS: Appearance, Urine Hazy (Clear); Color, Urine Yellow (P-Yellow)
[2019-07-11 17:19] LABS: White Blood Cells, Urine 50-100 /hpf (0-5)
[2019-07-11 17:20] LABS: Bacteria Many /hpf; Red Blood Cells, Urine 50-100 /hpf (0-2); Squamous Epithelial Cells Not Seen /hpf (Few)
== END ==
LOC: LAB SHORT 14:45 → LAB 14:45
PROVIDERS: Family Medicine
DX: N39.0 Urinary tract infection, site not specified (principal)
CPT/HCPCS: 81001; 87077; 87086; 87186

== ENCOUNTER → 2019-11-29 | Outpatient (CLI) | payer MEDICARE, OTHER ==
[~2019-11-29] MED LIST changes: +AMOCLA875 PO; +Atarax10 MG PO; +FERSU300 PO; +Florastor250 MG PO; +GABAPENTIN600 MG PO; -HYDPAM50 PO; -Keppra1000 MG PO; +LEVETIRACETAM1000 M1 PO; +SENN187 PO; +VENL75ER PO; +Voltaren100 GM TOP
[2019-11-30 14:58] LABS: Bilirubin, Urine Neg (Neg); Blood, Urine Neg (Neg); Glucose Qualitative, Urine Neg (Neg); Ketones, Urine Neg (Neg); Leukocyte Esterase, Urine 2+ (Neg); Nitrite, Urine Neg (Neg); Protein, Urine 1+ (Neg); Urobilinogen, Urine NORM (Normal)
[2019-11-30 15:29] LABS: Appearance, Urine Hazy (Clear); Color, Urine Yellow (P-Yellow)
[2019-11-30 15:30] LABS: Red Blood Cells, Urine 0-2 /hpf (0-2); White Blood Cells, Urine 25-50 /hpf (0-5)
[2019-11-30 15:31] LABS: Bacteria Many /hpf; Squamous Epithelial Cells Rare /hpf (Few)
== END | disposition home or self-care (01) ==
LOC: LAB 12:45 → LAB SHORT 12:45
PROVIDERS: Family Medicine
DX: N39.0 Urinary tract infection, site not specified (principal)
CPT/HCPCS: 81001; 87077; 87086; 87186

== ENCOUNTER 2019-12-18 16:26 | Observation (INO) | payer MEDICARE, OTHER ==
[~2019-12-18] VITALS: Ht 185.4 cm; Wt 149.3 kg
[~2019-12-18 16:26] MED LIST changes: -AMOCLA875 PO; -FERSU300 PO; -Florastor250 MG PO; -SENN187 PO; -VENL75ER PO; -Voltaren100 GM TOP
[2019-12-18 17:01] LABS: BASOPHILS ABSOLUTE AUTO 0.05 K/mm3 (0.00-0.23); BASOPHILS PERCENT AUTO 1 % (0-2); EOSINOPHILS ABSOLUTE AUTO 0.11 K/mm3 (0.00-0.68); EOSINOPHILS PERCENT AUTO 1 % (0-6); Hematocrit 45.6 % (37.0-53.0); Hemoglobin 14.1 g/dL (13.5-17.5); IMMATURE GRAN PERCENT AUTO 1 % (0-1); LYMPHOCYTES PERCENT AUTO 33 % (21-46); MONOCYTES ABSOLUTE AUTO 0.98 K/mm3 (0.16-1.47); MONOCYTES PERCENT AUTO 10 % (4-13); Mean Corpuscular HGB 27.4 pg (26.0-34.0); Mean Corpuscular HGB Conc 30.9 g/dL (31.5-36.5); Mean Corpuscular Volume 89 fL (80-100); Mean Platelet Volume 10.4 fL (9.1-12.4); NEUTROPHILS ABSOLUTE AUTO 5.62 K/mm3 (1.96-9.15); NEUTROPHILS PERCENT AUTO 55 % (41-73); Platelet Count 218 K/mm3 (150-400); RDW Coefficient Variation 14.2 % (11.7-14.2); RDW Standard Deviation 46.5 fL (35.1-46.3); Red Blood Cell Count 5.14 M/mm3 (4.30-5.90); White Blood Cell Count 10.26 K/mm3 (4.00-11.30)
[2019-12-18 17:15] LABS: Alanine Aminotransfer (ALT/SGP 32 U/L (12-78); Albumin, Blood 3.9 g/dL (3.4-5.0); Albumin/Globulin Ratio 1.1 (0.8-1.8); Alk Phos 141 U/L (50-136); Anion Gap 6 mmol/L (6-16); Aspartate Aminotrans (AST/SGOT 18 U/L (12-37); Bilirubin, Total 0.5 mg/dL (0.1-1.0); Blood Urea Nitrogen 13 mg/dL (8-24); Bun/Creatinine Ratio 23.4 (12.0-20.0); CO2, Blood 31 mmol/L (21-32); Calcium, Blood 8.7 mg/dL (8.5-10.1); Chloride, Blood 106 mmol/L (98-108); Creatinine, Blood 0.56 mg/dL (0.60-1.20); Globulin, Blood 3.7 g/dL (2.2-4.0); Glomerular Filtration Rate >60 (60-); Glucose, Blood 124 mg/dL (70-99); Potassium, Blood 4.2 mmol/L (3.5-5.5); Sodium, Blood 143 mmol/L (136-145); Total Protein, Blood 7.6 g/dL (6.4-8.2); Troponin I <0.015 ng/mL (0.000-0.040)
[2019-12-18] MEDS ORDERED: FERSU300 PO (18:02)
[2019-12-18] MEDS ORDERED: Voltaren100 GM TOP (18:02)
[2019-12-18] MEDS ORDERED: Diflucan100 MG PO (18:02)
[2019-12-18] MEDS ORDERED: SENN187 PO (18:05)
[2019-12-18] MEDS ORDERED: LEVETIRACETAM1000 M1 PO (18:05)
[2019-12-18] MEDS ORDERED: XARELTO20 MG PO (18:06)
[2019-12-18] MEDS ORDERED: VENL75ER PO (18:07)
[2019-12-18 19:42] LABS: Adenovirus Not Detected (NOT DETECT); Bordetella pertussis Not Detected (NOT DETECT); Chlamydophila pneumoniae Not Detected (NOT DETECT); Coronavirus 229E Not Detected (NOT DETECT); Coronavirus HKU1 Not Detected (NOT DETECT); Coronavirus NL63 Not Detected (NOT DETECT); Coronavirus OC43 Not Detected (NOT DETECT); Human Metapneumovirus Not Detected (NOT DETECT); Human Rhinovirus/Enterovirus Not Detected (NOT DETECT); Influenza A/2009-H1 Not Detected (NOT DETECT); Influenza A/H1 Not Detected (NOT DETECT); Influenza A/H3 Not Detected (NOT DETECT); Influenza B Not Detected (NOT DETECT); Mycoplasma pneumoniae Not Detected (NOT DETECT); Parainfluenza Virus 1 Not Detected (NOT DETECT); Parainfluenza Virus 2 Not Detected (NOT DETECT); Parainfluenza Virus 3 Not Detected (NOT DETECT); Parainfluenza Virus 4 Not Detected (NOT DETECT); Respiratory Syncytial Virus Not Detected (NOT DETECT); SARS-Cov-2 (COVID-19), BioFire Not Detected (NOT DETECT)
[2019-12-18] MEDS ORDERED: ACET325 PO (21:46)
[2019-12-18] MEDS ORDERED: LORA.5 PO (21:51)
--- NOTE | 2019-12-19 01:40 | NUR ---
PT HAS EXCESSIVE SWEATING, NURSE NOTIFIED
--- NOTE | 2019-12-19 04:46 | NUR ---
SHIFT SUMMARY: PT IS ALERT AND ORIENTED. PT IS SOMEWHAT AGITATED DURING ADMISSION FOR WHICH HE LATER APOLOGIZED. PT HAS MINIMAL USE OF EXTREMETIES, ARMS MORE THAN LEGS, IS CHAIRBOUND AT BASELINE. PT ON 4 L 02 UPON ARRIVAL, TITRATED DOWN TO 2 BEFORE SHIFT CHANGE. PT DENIES PAIN, NAUSEA, AND VOMITING. PT SLEPT MUCH OF THE NIGHT WHEN NOT DISTURBED. LACTIC ACID CARLOS FROM 2.1 TO 3.6, CALLED DR. CARRINGTON WHO GAVE NO ADDITIONAL ORDERS. NS RUNNING @ 75/HR FOR 1 LITER. NO ACUTE CHANGES OR COMPLICATIONS THIS SHIFT. BED IN LOW POSITION, CALL LIGHT WITHIN REACH. WILL CONTINUE TO MONITOR.
[2019-12-19] MEDS ORDERED: Florastor250 MG PO (15:24)
[2019-12-19] MEDS ORDERED: AMOCLA875 PO (15:25)
--- NOTE | 2019-12-19 16:06 | NUR ---
1605 PT DISCHARGED HOME TO [facility] VIA W/C TRANSPORT. BELONGINGS WITH PT. CM FAXED DOCUMENTS TO [facility]. IV REMOVED BY SN. PT RECIEVED LASIX 20MG IV THIS AM. PT DENIED SOB, N/V, REPORTED PAIN WAS TOLERABLE AND REFUSED INTERVENTIONS OFFERED. PT ON RA AT TIME OF D/C. NO NEW CHANGES OR CONCERNS.
== END 2019-12-19 16:05 | disposition home or self-care (01) ==
LOC: ER 16:26 → MEDS 16:27 → ER 19:48 → MEDS 20:40 → ENPENDDIS 12-19 11:03 → MEDS 12-19 16:05
PROVIDERS: Emergency Medicine; ADMIT Internal Medicine
DX: J96.01 Acute respiratory failure with hypoxia (principal); G40.909 Epilepsy, unspecified, not intractable, without status epilepticus; D50.9 Iron deficiency anemia, unspecified; Z91.81 History of falling; K21.9 Gastro-esophageal reflux disease without esophagitis; Z20.828 Contact with and (suspected) exposure to other viral communicable diseases; Z79.899 Other long term (current) drug therapy; Z79.01 Long term (current) use of anticoagulants; F41.9 Anxiety disorder, unspecified; Z87.891 Personal history of nicotine dependence; Z88.5 Allergy status to narcotic agent
CPT/HCPCS: 0202U; 36415; 71045; 71260; 80053; 83605; 83880; 84484; 85025; 87040; 93005; 93010; 94640; 96361; 96365; 96366; 96367; 96375; 96376; 99285-25; G0378; J0456; J0696; J1100; J1940; J7030; J7050; Q9967

== ENCOUNTER → 2020-01-12 | Outpatient (CLI) | payer MEDICARE, OTHER ==
[~2020-01-12] MED LIST changes: +AMOCLA875 PO; +FERSU300 PO; +Florastor250 MG PO; +SENN187 PO; +VENL75ER PO; +Voltaren100 GM TOP
[2020-01-12 19:51] LABS: Appearance, Urine Clear (Clear); Bilirubin, Urine Neg (Neg); Blood, Urine 1+ (Neg); Color, Urine Yellow (P-Yellow); Glucose Qualitative, Urine Neg (Neg); Ketones, Urine 1+ (Neg); Leukocyte Esterase, Urine 1+ (Neg); Nitrite, Urine Neg (Neg); Protein, Urine 1+ (Neg); Urobilinogen, Urine NORM (Normal)
[2020-01-12 20:13] LABS: Calcium Oxalate Crystals Many /hpf; Mucus Light (0-Heavy)
[2020-01-12 20:14] LABS: Bacteria Rare /hpf; Squamous Epithelial Cells Few /hpf (Few)
== END | disposition home or self-care (01) ==
LOC: LAB 18:46 → LAB SHORT 18:46
PROVIDERS: Family Medicine
DX: N39.0 Urinary tract infection, site not specified (principal)
CPT/HCPCS: 81001; 87077; 87086; 87186

== ENCOUNTER → 2020-02-22 | Outpatient (CLI) | payer MEDICARE, OTHER ==
[2020-02-22 12:29] LABS: BASOPHILS ABSOLUTE AUTO 0.08 K/mm3 (0.00-0.23); BASOPHILS PERCENT AUTO 1 % (0-2); EOSINOPHILS ABSOLUTE AUTO 0.18 K/mm3 (0.00-0.68); EOSINOPHILS PERCENT AUTO 2 % (0-6); Hematocrit 47.3 % (37.0-53.0); IMMATURE GRAN ABSOLUTE AUTO 0.06 K/mm3 (0.00-0.10); IMMATURE GRAN PERCENT AUTO 1 % (0-1); LYMPHOCYTES ABSOLUTE AUTO 3.08 K/mm3 (0.84-5.20); LYMPHOCYTES PERCENT AUTO 40 % (21-46); MONOCYTES ABSOLUTE AUTO 0.68 K/mm3 (0.16-1.47); MONOCYTES PERCENT AUTO 9 % (4-13); Mean Corpuscular HGB Conc 31.7 g/dL (31.5-36.5); Mean Corpuscular Volume 92 fL (80-100); Mean Platelet Volume 11.1 fL (9.1-12.4); NEUTROPHILS ABSOLUTE AUTO 3.54 K/mm3 (1.96-9.15); NEUTROPHILS PERCENT AUTO 47 % (41-73); Platelet Count 203 K/mm3 (150-400); RDW Coefficient Variation 13.1 % (11.7-14.2); RDW Standard Deviation 44.3 fL (35.1-46.3); Red Blood Cell Count 5.17 M/mm3 (4.30-5.90); White Blood Cell Count 7.62 K/mm3 (4.00-11.30)
[2020-02-22 13:52] LABS: Anion Gap 9 mmol/L (6-16); Blood Urea Nitrogen 11 mg/dL (8-24); Bun/Creatinine Ratio 19.9 (12.0-20.0); CHOL/HDL RATIO 2.8; CO2, Blood 28 mmol/L (21-32); Calcium, Blood 8.8 mg/dL (8.5-10.1); Chloride, Blood 106 mmol/L (98-108); Cholesterol 174 mg/dL (50-200); Creatinine, Blood 0.55 mg/dL (0.60-1.20); Glomerular Filtration Rate >60 (60-); Glucose, Blood 87 mg/dL (70-99); HDL Cholesterol 62 mg/dL (>39); LDL/HDL RATIO 1.3; Low Density Lipoprotein Chol 78 mg/dL (0-110); Potassium, Blood 3.6 mmol/L (3.5-5.5); Sodium, Blood 143 mmol/L (136-145); Triglycerides 172 mg/dL (30-160); Very Low Density Lipoprot Chol 34 mg/dL (6-32)
== END | disposition home or self-care (01) ==
LOC: LAB 08:30 → LAB SHORT 08:30 → EDSTATUS 12-22 08:55 → LAB FUT 12-22 08:55
PROVIDERS: Nurse Practitioner Family
DX: Z13.6 Encounter for screening for cardiovascular disorders (principal); R25.2 Cramp and spasm
CPT/HCPCS: 80048; 80061; 85025

== ENCOUNTER 2020-04-01 19:40 | Emergency (ER) | payer MEDICARE, OTHER ==
[~2020-04-01] VITALS: Ht 188 cm; Wt 145.2 kg
[~2020-04-01 19:40] MED LIST changes: -Atarax10 MG PO; -BACL10 PO; -FERSU300 PO; -Flomax0.4 MG PO; -GABAPENTIN600 MG PO; -LEVETIRACETAM1000 M1 PO; -Lamictal150 MG PO; -OMEP20ER PO; -SENN187 PO; -TRAZ100 PO; -VENL75ER PO; -Voltaren100 GM TOP
[2020-04-01 21:38] LABS: BASOPHILS ABSOLUTE AUTO 0.06 K/mm3 (0.00-0.23); BASOPHILS PERCENT AUTO 1 % (0-2); EOSINOPHILS PERCENT AUTO 1 % (0-6); Hematocrit 45.2 % (37.0-53.0); Hemoglobin 14.5 g/dL (13.5-17.5); IMMATURE GRAN ABSOLUTE AUTO 0.05 K/mm3 (0.00-0.10); IMMATURE GRAN PERCENT AUTO 1 % (0-1); LYMPHOCYTES ABSOLUTE AUTO 2.74 K/mm3 (0.84-5.20); LYMPHOCYTES PERCENT AUTO 30 % (21-46); MONOCYTES PERCENT AUTO 9 % (4-13); Mean Corpuscular HGB 29.9 pg (26.0-34.0); Mean Corpuscular HGB Conc 32.1 g/dL (31.5-36.5); Mean Corpuscular Volume 93 fL (80-100); Mean Platelet Volume 10.8 fL (9.1-12.4); NEUTROPHILS ABSOLUTE AUTO 5.54 K/mm3 (1.96-9.15); NEUTROPHILS PERCENT AUTO 60 % (41-73); Platelet Count 190 K/mm3 (150-400); RDW Coefficient Variation 12.2 % (11.7-14.2); RDW Standard Deviation 42.1 fL (35.1-46.3); Red Blood Cell Count 4.85 M/mm3 (4.30-5.90); White Blood Cell Count 9.29 K/mm3 (4.00-11.30)
[2020-04-01 21:56] LABS: Alanine Aminotransfer (ALT/SGP 30 U/L (12-78); Albumin, Blood 3.7 g/dL (3.4-5.0); Albumin/Globulin Ratio 1.1 (0.8-1.8); Alk Phos 125 U/L (50-136); Anion Gap 4 mmol/L (6-16); Aspartate Aminotrans (AST/SGOT 22 U/L (12-37); Bilirubin, Total 0.5 mg/dL (0.1-1.0); Blood Urea Nitrogen 11 mg/dL (8-24); Bun/Creatinine Ratio 22.3 (12.0-20.0); CO2, Blood 30 mmol/L (21-32); Calcium, Blood 8.7 mg/dL (8.5-10.1); Chloride, Blood 108 mmol/L (98-108); Creatinine, Blood 0.49 mg/dL (0.60-1.20); Globulin, Blood 3.4 g/dL (2.2-4.0); Glomerular Filtration Rate >60 (60-); Glucose, Blood 99 mg/dL (70-99); Potassium, Blood 3.9 mmol/L (3.5-5.5); Sodium, Blood 142 mmol/L (136-145); Total Protein, Blood 7.1 g/dL (6.4-8.2)
[2020-04-01] MEDS ORDERED: CEPH500 PO (22:02)
== END 2020-04-01 22:54 | disposition home or self-care (01) ==
LOC: ER 19:40
PROVIDERS: Physician Assistant
DX: L03.116 Cellulitis of left lower limb (principal); Z88.5 Allergy status to narcotic agent; Z79.899 Other long term (current) drug therapy
CPT/HCPCS: 80053; 83605; 85025; 87040; 96372; 99285; A9270; J1885

== ENCOUNTER 2020-04-13 14:56 | Emergency (ER) | payer MEDICARE, OTHER ==
[~2020-04-13] VITALS: Ht 188 cm; Wt 145.2 kg
[2020-04-13] MEDS ORDERED: Flomax0.4 MG PO (15:15)
[2020-04-13] MEDS ORDERED: ROWEEPRA750 MG PO ×2 (15:16→17:42)
[2020-04-13 15:19] LABS: BASOPHILS ABSOLUTE AUTO 0.04 K/mm3 (0.00-0.23); BASOPHILS PERCENT AUTO 1 % (0-2); EOSINOPHILS ABSOLUTE AUTO 0.09 K/mm3 (0.00-0.68); EOSINOPHILS PERCENT AUTO 1 % (0-6); Hematocrit 47.6 % (37.0-53.0); Hemoglobin 15.1 g/dL (13.5-17.5); IMMATURE GRAN ABSOLUTE AUTO 0.05 K/mm3 (0.00-0.10); IMMATURE GRAN PERCENT AUTO 1 % (0-1); LYMPHOCYTES ABSOLUTE AUTO 2.53 K/mm3 (0.84-5.20); LYMPHOCYTES PERCENT AUTO 31 % (21-46); MONOCYTES ABSOLUTE AUTO 0.63 K/mm3 (0.16-1.47); MONOCYTES PERCENT AUTO 8 % (4-13); Mean Corpuscular HGB 29.3 pg (26.0-34.0); Mean Corpuscular HGB Conc 31.7 g/dL (31.5-36.5); Mean Corpuscular Volume 92 fL (80-100); Mean Platelet Volume 12.1 fL (9.1-12.4); NEUTROPHILS ABSOLUTE AUTO 4.88 K/mm3 (1.96-9.15); NEUTROPHILS PERCENT AUTO 59 % (41-73); Platelet Count 161 K/mm3 (150-400); RDW Coefficient Variation 12.4 % (11.7-14.2); RDW Standard Deviation 42.5 fL (35.1-46.3); Red Blood Cell Count 5.15 M/mm3 (4.30-5.90); White Blood Cell Count 8.22 K/mm3 (4.00-11.30)
[2020-04-13 15:35] LABS: Source, Urine Catheter
[2020-04-13 15:53] LABS: Appearance, Urine Clear (Clear); Bilirubin, Urine Neg (Neg); Blood, Urine Neg (Neg); Color, Urine Yellow (P-Yellow); Glucose Qualitative, Urine Neg (Neg); Ketones, Urine Neg (Neg); Leukocyte Esterase, Urine Neg (Neg); Nitrite, Urine Neg (Neg); Protein, Urine Neg (Neg); Urobilinogen, Urine NORM (Normal)
[2020-04-13 16:20] LABS: Alanine Aminotransfer (ALT/SGP 34 U/L (12-78); Albumin, Blood 3.4 g/dL (3.4-5.0); Alk Phos 112 U/L (50-136); Anion Gap 4 mmol/L (6-16); Aspartate Aminotrans (AST/SGOT 54 U/L (12-37); Bilirubin, Total 0.5 mg/dL (0.1-1.0); Blood Urea Nitrogen 11 mg/dL (8-24); Bun/Creatinine Ratio 21.1 (12.0-20.0); CO2, Blood 29 mmol/L (21-32); Calcium, Blood 7.7 mg/dL (8.5-10.1); Chloride, Blood 110 mmol/L (98-108); Creatinine, Blood 0.52 mg/dL (0.60-1.20); Globulin, Blood 3.5 g/dL (2.2-4.0); Glomerular Filtration Rate >60 (60-); Glucose, Blood 83 mg/dL (70-99); Sodium, Blood 143 mmol/L (136-145); Total Protein, Blood 6.9 g/dL (6.4-8.2)
[2020-04-13] MEDS ORDERED: Keppra750 MG PO (17:42)
== END 2020-04-13 20:09 | disposition home or self-care (01) ==
LOC: ER 14:56
PROVIDERS: Student in an Organized Health Care Education/Training Program
DX: G40.909 Epilepsy, unspecified, not intractable, without status epilepticus (principal); I10 Essential (primary) hypertension; K21.9 Gastro-esophageal reflux disease without esophagitis; Z86.718 Personal history of other venous thrombosis and embolism; Z79.899 Other long term (current) drug therapy; Z79.01 Long term (current) use of anticoagulants; Z88.5 Allergy status to narcotic agent
CPT/HCPCS: 36415; 51701; 71045; 80053; 80177; 81003; 82947; 85025; 93005; 93010; 96374-59; 99285-25; A9270; J1953

== ENCOUNTER 2020-05-08 11:08 | Emergency (ER) | payer MEDICARE, OTHER ==
[~2020-05-08] VITALS: Ht 188 cm; Wt 154.2 kg
[~2020-05-08 11:08] MED LIST changes: +Flomax0.4 MG PO; +Keppra750 MG PO; +ROWEEPRA750 MG PO
[2020-05-08 12:32] LABS: BASOPHILS ABSOLUTE AUTO 0.06 K/mm3 (0.00-0.23); BASOPHILS PERCENT AUTO 1 % (0-2); EOSINOPHILS ABSOLUTE AUTO 0.11 K/mm3 (0.00-0.68); EOSINOPHILS PERCENT AUTO 1 % (0-6); Hematocrit 48.8 % (37.0-53.0); IMMATURE GRAN PERCENT AUTO 1 % (0-1); LYMPHOCYTES ABSOLUTE AUTO 2.95 K/mm3 (0.84-5.20); LYMPHOCYTES PERCENT AUTO 33 % (21-46); MONOCYTES ABSOLUTE AUTO 0.91 K/mm3 (0.16-1.47); MONOCYTES PERCENT AUTO 10 % (4-13); Mean Corpuscular HGB 30.5 pg (26.0-34.0); Mean Corpuscular HGB Conc 32.8 g/dL (31.5-36.5); Mean Corpuscular Volume 93 fL (80-100); Mean Platelet Volume 10.8 fL (9.1-12.4); NEUTROPHILS PERCENT AUTO 54 % (41-73); Platelet Count 200 K/mm3 (150-400); RDW Coefficient Variation 12.5 % (11.7-14.2); RDW Standard Deviation 42.5 fL (35.1-46.3); Red Blood Cell Count 5.25 M/mm3 (4.30-5.90); White Blood Cell Count 9.03 K/mm3 (4.00-11.30)
[2020-05-08 12:48] LABS: Alanine Aminotransfer (ALT/SGP 31 U/L (12-78); Albumin, Blood 4.1 g/dL (3.4-5.0); Albumin/Globulin Ratio 1.2 (0.8-1.8); Alk Phos 141 U/L (50-136); Anion Gap 5 mmol/L (6-16); Aspartate Aminotrans (AST/SGOT 22 U/L (12-37); Bilirubin, Total 0.5 mg/dL (0.1-1.0); Blood Urea Nitrogen 11 mg/dL (8-24); Bun/Creatinine Ratio 14.7 (12.0-20.0); CO2, Blood 31 mmol/L (21-32); Chloride, Blood 105 mmol/L (98-108); Creatinine, Blood 0.75 mg/dL (0.60-1.20); Globulin, Blood 3.5 g/dL (2.2-4.0); Glomerular Filtration Rate >60 (60-); Glucose, Blood 97 mg/dL (70-99); Potassium, Blood 4.2 mmol/L (3.5-5.5); Sodium, Blood 141 mmol/L (136-145); Total Protein, Blood 7.6 g/dL (6.4-8.2)
[2020-05-08] MEDS ORDERED: LINE600 PO (15:06)
== END 2020-05-08 17:16 | disposition home or self-care (01) ==
LOC: ER 11:08
PROVIDERS: Emergency Medicine
DX: L03.116 Cellulitis of left lower limb (principal); K21.9 Gastro-esophageal reflux disease without esophagitis; M79.605 Pain in left leg; Z79.01 Long term (current) use of anticoagulants; Z88.5 Allergy status to narcotic agent; Z79.899 Other long term (current) drug therapy; Z86.718 Personal history of other venous thrombosis and embolism
CPT/HCPCS: 36415; 76882; 80053; 83605; 85025; 93971; 96374; 99284-25; A9270; J1885

== ENCOUNTER 2020-06-11 18:44 | Emergency (ER) | payer MEDICARE, OTHER ==
[~2020-06-11] VITALS: Ht 188 cm; Wt 154.2 kg
[~2020-06-11 18:44] MED LIST changes: +LINE600 PO
[2020-06-11] MEDS ORDERED: Voltaren100 GM TOP (19:46)
[2020-06-11] MEDS ORDERED: BACL20 PO (19:46)
[2020-06-11] MEDS ORDERED: Keppra750 MG PO ×2 (19:47→19:48)
[2020-06-11] MEDS ORDERED: GABA300 PO (19:49)
[2020-06-11] MEDS ORDERED: CLON.5 PO (19:49)
[2020-06-11] MEDS ORDERED: Diflucan100 MG PO (19:49)
[2020-06-11] MEDS ORDERED: OMEP20ER PO (19:50)
[2020-06-11] MEDS ORDERED: XARELTO20 MG PO (19:50)
[2020-06-11] MEDS ORDERED: Atarax10 MG PO (19:51)
[2020-06-11] MEDS ORDERED: Lamictal200 MG PO (19:51)
[2020-06-11] MEDS ORDERED: TRAZ100 PO (19:52)
[2020-06-11] MEDS ORDERED: VENL75ER PO (19:52)
[2020-06-11] MEDS ORDERED: BUSP10 PO (19:52)
[2020-06-11] MEDS ORDERED: FERSU300 PO (20:03)
[2020-06-11] MEDS ORDERED: ALBU90OI INH (20:04)
[2020-06-11] MEDS ORDERED: OXYC10TA19 PO (20:05)
[2020-06-11] MEDS ORDERED: DOCUZEN 8.6-501 EACH PO (20:05)
[2020-06-11] MEDS ORDERED: MIRALAX17 GM PO (20:06)
[2020-06-11] MEDS ORDERED: NYSTOP15 GM TOP (20:07)
[2020-06-11] MEDS ORDERED: 8 HOUR ACETAMI650 MG PO (20:07)
[2020-06-11] MEDS ORDERED: Protopic100 GM TOP (20:08)
[2020-06-11] MEDS ORDERED: Triamcinolone A15 G3 TOP (20:10)
[2020-06-11 20:12] LABS: BASOPHILS ABSOLUTE AUTO 0.04 K/mm3 (0.00-0.23); BASOPHILS PERCENT AUTO 0 % (0-2); EOSINOPHILS PERCENT AUTO 1 % (0-6); Hematocrit 46.8 % (37.0-53.0); Hemoglobin 15.5 g/dL (13.5-17.5); IMMATURE GRAN ABSOLUTE AUTO 0.11 K/mm3 (0.00-0.10); IMMATURE GRAN PERCENT AUTO 1 % (0-1); LYMPHOCYTES ABSOLUTE AUTO 2.64 K/mm3 (0.84-5.20); LYMPHOCYTES PERCENT AUTO 23 % (21-46); MONOCYTES ABSOLUTE AUTO 1.08 K/mm3 (0.16-1.47); MONOCYTES PERCENT AUTO 9 % (4-13); Mean Corpuscular HGB 30.6 pg (26.0-34.0); Mean Corpuscular HGB Conc 33.1 g/dL (31.5-36.5); Mean Corpuscular Volume 93 fL (80-100); Mean Platelet Volume 10.7 fL (9.1-12.4); NEUTROPHILS ABSOLUTE AUTO 7.46 K/mm3 (1.96-9.15); NEUTROPHILS PERCENT AUTO 65 % (41-73); Platelet Count 145 K/mm3 (150-400); RDW Coefficient Variation 12.9 % (11.7-14.2); RDW Standard Deviation 43.7 fL (35.1-46.3); Red Blood Cell Count 5.06 M/mm3 (4.30-5.90); White Blood Cell Count 11.43 K/mm3 (4.00-11.30)
[2020-06-11] MEDS ORDERED: OXYB5 PO (20:12)
[2020-06-11 20:41] LABS: Alanine Aminotransfer (ALT/SGP 30 U/L (12-78); Albumin, Blood 3.7 g/dL (3.4-5.0); Alk Phos 123 U/L (50-136); Anion Gap 3 mmol/L (6-16); Aspartate Aminotrans (AST/SGOT 21 U/L (12-37); Bilirubin, Total 0.6 mg/dL (0.1-1.0); Blood Urea Nitrogen 16 mg/dL (8-24); CO2, Blood 31 mmol/L (21-32); Calcium, Blood 8.9 mg/dL (8.5-10.1); Chloride, Blood 104 mmol/L (98-108); Creatinine, Blood 0.62 mg/dL (0.60-1.20); Globulin, Blood 3.8 g/dL (2.2-4.0); Glomerular Filtration Rate >60 (60-); Glucose, Blood 108 mg/dL (70-99); Potassium, Blood 4.3 mmol/L (3.5-5.5); Sodium, Blood 138 mmol/L (136-145); Total Protein, Blood 7.5 g/dL (6.4-8.2)
[2020-06-11] MEDS ORDERED: CEPH500 PO (20:51)
[2020-06-11] MEDS ORDERED: LOPE2C PO (20:54)
== END 2020-06-11 22:23 | disposition home or self-care (01) ==
LOC: ER 18:44
PROVIDERS: Emergency Medicine
DX: L02.214 Cutaneous abscess of groin (principal); N49.2 Inflammatory disorders of scrotum; I87.8 Other specified disorders of veins; I10 Essential (primary) hypertension; K21.9 Gastro-esophageal reflux disease without esophagitis; G40.909 Epilepsy, unspecified, not intractable, without status epilepticus; F17.220 Nicotine dependence, chewing tobacco, uncomplicated; Z88.5 Allergy status to narcotic agent; Z79.899 Other long term (current) drug therapy
CPT/HCPCS: 36415; 80053; 85025; 96365; 99283-25; J0696

== ENCOUNTER → 2020-06-18 | Outpatient (CLI) | payer MEDICARE, OTHER ==
[~2020-06-18] MED LIST changes: +8 HOUR ACETAMI650 MG PO; +ALBU90OI INH; +Atarax10 MG PO; +BACL20 PO; +CLON.5 PO; +DOCUZEN 8.6-501 EACH PO; +FERSU300 PO; +LOPE2C PO; +Lamictal200 MG PO; +MIRALAX17 GM PO; +NYSTOP15 GM TOP; +OMEP20ER PO; +OXYB5 PO; +Protopic100 GM TOP; +TRAZ100 PO; +Triamcinolone A15 G3 TOP; +VENL75ER PO; +Voltaren100 GM TOP
== END | disposition home or self-care (01) ==
LOC: LAB SHORT 12:51 → LAB 12:51
DX: E11.622 Type 2 diabetes mellitus with other skin ulcer (principal); E11.42 Type 2 diabetes mellitus with diabetic polyneuropathy; R73.09 Other abnormal glucose
CPT/HCPCS: 83036

== ENCOUNTER → 2020-07-17 | Outpatient (CLI) | payer MEDICARE, OTHER ==
[2020-07-17 20:46] LABS: Anion Gap 5 mmol/L (6-16); Blood Urea Nitrogen 12 mg/dL (8-24); Bun/Creatinine Ratio 18.9 (12.0-20.0); CO2, Blood 30 mmol/L (21-32); Calcium, Blood 9.1 mg/dL (8.5-10.1); Chloride, Blood 105 mmol/L (98-108); Creatinine, Blood 0.64 mg/dL (0.60-1.20); Glomerular Filtration Rate >60 (60-); Glucose, Blood 104 mg/dL (70-99); Potassium, Blood 4.5 mmol/L (3.5-5.5); Sodium, Blood 140 mmol/L (136-145)
== END | disposition home or self-care (01) ==
LOC: LAB SHORT 16:00 → LAB 16:00
PROVIDERS: Nurse Practitioner Family
DX: S81.802A Unspecified open wound, left lower leg, initial encounter (principal)
CPT/HCPCS: 80048; 87070; 87075; 87077; 87147; 87186; 87205

== ENCOUNTER → 2020-08-07 | Outpatient (CLI) | payer MEDICARE, OTHER | END | disposition home or self-care (01) | LOC: LAB 13:41 → LAB SHORT 13:41 | DX: S81.802A Unspecified open wound, left lower leg, initial encounter (principal); A49.02 Methicillin resistant Staphylococcus aureus infection, unspecified site | CPT/HCPCS: 87070; 87075; 87205 ==

== ENCOUNTER → 2020-08-20 | Outpatient (CLI) | payer MEDICARE, OTHER | END | disposition home or self-care (01) | LOC: LAB 11:18 → LAB SHORT 11:18 | DX: S81.802A Unspecified open wound, left lower leg, initial encounter (principal); I87.2 Venous insufficiency (chronic) (peripheral); L97.822 Non-pressure chronic ulcer of other part of left lower leg with fat layer exposed; L03.116 Cellulitis of left lower limb | CPT/HCPCS: 87070; 87077; 87147; 87186; 87205 ==

== ENCOUNTER 2020-08-31 16:08 | Emergency (ER) | payer MEDICARE, OTHER ==
[~2020-08-31] VITALS: Ht 193 cm; Wt 147.4 kg
[2020-08-31 16:41] LABS: BASOPHILS ABSOLUTE AUTO 0.04 K/mm3 (0.00-0.23); BASOPHILS PERCENT AUTO 1 % (0-2); EOSINOPHILS ABSOLUTE AUTO 0.05 K/mm3 (0.00-0.68); EOSINOPHILS PERCENT AUTO 1 % (0-6); Hematocrit 49.2 % (37.0-53.0); Hemoglobin 15.7 g/dL (13.5-17.5); IMMATURE GRAN ABSOLUTE AUTO 0.06 K/mm3 (0.00-0.10); IMMATURE GRAN PERCENT AUTO 1 % (0-1); LYMPHOCYTES ABSOLUTE AUTO 2.24 K/mm3 (0.84-5.20); LYMPHOCYTES PERCENT AUTO 28 % (21-46); MONOCYTES ABSOLUTE AUTO 0.67 K/mm3 (0.16-1.47); MONOCYTES PERCENT AUTO 8 % (4-13); Mean Corpuscular HGB 29.8 pg (26.0-34.0); Mean Corpuscular HGB Conc 31.9 g/dL (31.5-36.5); Mean Corpuscular Volume 94 fL (80-100); Mean Platelet Volume 10.8 fL (9.1-12.4); NEUTROPHILS ABSOLUTE AUTO 4.99 K/mm3 (1.96-9.15); NEUTROPHILS PERCENT AUTO 62 % (41-73); Platelet Count 210 K/mm3 (150-400); RDW Coefficient Variation 12.7 % (11.7-14.2); RDW Standard Deviation 43.6 fL (35.1-46.3); Red Blood Cell Count 5.26 M/mm3 (4.30-5.90); White Blood Cell Count 8.05 K/mm3 (4.00-11.30)
[2020-08-31 16:52] LABS: Alanine Aminotransfer (ALT/SGP 31 U/L (12-78); Albumin, Blood 3.9 g/dL (3.4-5.0); Albumin/Globulin Ratio 1.1 (0.8-1.8); Alk Phos 105 U/L (50-136); Anion Gap 4 mmol/L (6-16); Aspartate Aminotrans (AST/SGOT 18 U/L (12-37); Bilirubin, Total 0.5 mg/dL (0.1-1.0); Blood Urea Nitrogen 11 mg/dL (8-24); Bun/Creatinine Ratio 16.9 (12.0-20.0); CO2, Blood 30 mmol/L (21-32); Calcium, Blood 8.4 mg/dL (8.5-10.1); Chloride, Blood 106 mmol/L (98-108); Creatinine, Blood 0.65 mg/dL (0.60-1.20); Globulin, Blood 3.4 g/dL (2.2-4.0); Glomerular Filtration Rate >60 (60-); Glucose, Blood 83 mg/dL (70-99); Sodium, Blood 140 mmol/L (136-145); Total Protein, Blood 7.3 g/dL (6.4-8.2)
== END 2020-08-31 22:30 | disposition home or self-care (01) ==
LOC: ER 16:08
PROVIDERS: Emergency Medicine
DX: G40.909 Epilepsy, unspecified, not intractable, without status epilepticus (principal); F17.220 Nicotine dependence, chewing tobacco, uncomplicated; Z79.01 Long term (current) use of anticoagulants; Z79.899 Other long term (current) drug therapy; Z88.5 Allergy status to narcotic agent; Z88.6 Allergy status to analgesic agent
CPT/HCPCS: 36415; 70450; 72125; 80053; 80177; 83735; 85025; 99284-25; A9270

== ENCOUNTER → 2020-09-05 | Outpatient (CLI) | payer MEDICARE, OTHER ==
[2020-09-06 11:40] LABS: C DIFFICILE DNA NEGATIVE (Negative)
== END | disposition home or self-care (01) ==
LOC: LAB SHORT 17:54 → LAB 17:54
PROVIDERS: Physician Assistant
DX: R19.5 Other fecal abnormalities (principal)
CPT/HCPCS: 87493

== ENCOUNTER → 2020-09-21 | Outpatient (CLI) | payer MEDICARE, OTHER | LOC: LAB SHORT 09:00 → LAB 09:00 | DX: R19.7 Diarrhea, unspecified (principal) | CPT/HCPCS: 87338 ==

== ENCOUNTER → 2020-09-23 | Outpatient (CLI) | payer MEDICARE, OTHER ==
[2020-09-24 15:44] LABS: Appearance, Urine Clear (Clear); Bilirubin, Urine Neg (Neg); Blood, Urine Neg (Neg); Color, Urine Yellow (P-Yellow); Glucose Qualitative, Urine Neg (Neg); Ketones, Urine Neg (Neg); Leukocyte Esterase, Urine Neg (Neg); Nitrite, Urine Neg (Neg); Protein, Urine Neg (Neg); Specific Gravity, Urine 1.005 (1.003-1.022); Urobilinogen, Urine 1+ (Normal)
== END | disposition home or self-care (01) ==
LOC: LAB SHORT 12:00
PROVIDERS: Family Medicine
DX: N39.0 Urinary tract infection, site not specified (principal)
CPT/HCPCS: 81003

== ENCOUNTER → 2020-09-26 | Outpatient (CLI) | payer MEDICARE, OTHER | END | disposition home or self-care (01) | LOC: LAB SHORT 13:30 → LAB 13:30 | DX: S81.802A Unspecified open wound, left lower leg, initial encounter (principal) | CPT/HCPCS: 87070; 87077; 87147; 87186; 87205 ==

== ENCOUNTER 2020-10-09 04:13 | Day surgery (SDC) | payer MEDICARE, OTHER | END 2020-10-09 22:48 | disposition home or self-care (01) | LOC: WOUND 04:13 | DX: L97.929 Non-pressure chronic ulcer of unspecified part of left lower leg with unspecified severity (principal); S81.802D Unspecified open wound, left lower leg, subsequent encounter; S81.801D Unspecified open wound, right lower leg, subsequent encounter; X58.XXXD Exposure to other specified factors, subsequent encounter; A49.02 Methicillin resistant Staphylococcus aureus infection, unspecified site; E66.01 Morbid (severe) obesity due to excess calories | CPT/HCPCS: A9270; G0463 ==

== ENCOUNTER 2020-10-16 02:42 | Day surgery (SDC) | payer MEDICARE, OTHER | END 2020-10-16 23:30 | disposition home or self-care (01) | LOC: WOUND 02:42 | DX: L97.822 Non-pressure chronic ulcer of other part of left lower leg with fat layer exposed (principal); S81.802D Unspecified open wound, left lower leg, subsequent encounter; S81.801D Unspecified open wound, right lower leg, subsequent encounter; X58.XXXD Exposure to other specified factors, subsequent encounter; A49.02 Methicillin resistant Staphylococcus aureus infection, unspecified site; E66.01 Morbid (severe) obesity due to excess calories; I87.2 Venous insufficiency (chronic) (peripheral) | CPT/HCPCS: A9270 ==

== ENCOUNTER 2020-10-23 02:12 | Day surgery (SDC) | payer MEDICARE, OTHER | END 2020-10-23 23:00 | disposition home or self-care (01) | LOC: WOUND 02:12 | DX: L97.822 Non-pressure chronic ulcer of other part of left lower leg with fat layer exposed (principal); S81.802D Unspecified open wound, left lower leg, subsequent encounter; S81.801D Unspecified open wound, right lower leg, subsequent encounter; X58.XXXD Exposure to other specified factors, subsequent encounter; A49.02 Methicillin resistant Staphylococcus aureus infection, unspecified site; E66.01 Morbid (severe) obesity due to excess calories; I87.2 Venous insufficiency (chronic) (peripheral) | CPT/HCPCS: 87070; 87075; 87077; 87081; 87186; 87205; A9270 ==

== ENCOUNTER → 2020-10-25 | Outpatient (CLI) | payer MEDICARE, OTHER ==
[2020-10-26 18:11] LABS: Adenovirus F 40/41 Not Detected (NOT DETECT); Astrovirus Not Detected (NOT DETECT); Campylobacter Sp Not Detected (NOT DETECT); Cryptosporidium Not Detected (NOT DETECT); Cyclospora Cayetanensis Not Detected (NOT DETECT); E. Coli O157 Not Detected (NOT DETECT); Entamoeba Histolytica Not Detected (NOT DETECT); Enteroaggregative E. coli-EAEC Not Detected (NOT DETECT); Enteropathogenic E. coli-EPEC Not Detected (NOT DETECT); Enterotoxigenic E. coli-ETEC Not Detected (NOT DETECT); Giardia Lamblia Not Detected (NOT DETECT); Norovirus GI/GII Not Detected (NOT DETECT); Plesiomonas Shigelloides Not Detected (NOT DETECT); Rotavirus A Not Detected (NOT DETECT); Salmonella Sp Not Detected (NOT DETECT); Sapovirus Not Detected (NOT DETECT); Shiga Toxin-prod E. coli-STEC Not Detected (NOT DETECT); Shigella/Enteroin E. coli-EIEC Not Detected (NOT DETECT); Vibrio Cholerae Not Detected (NOT DETECT); Vibrio Sp Not Detected (NOT DETECT); Yersinia Enterocolitica Not Detected (NOT DETECT)
== END | disposition home or self-care (01) ==
LOC: LAB SHORT 17:39 → LAB 17:39
PROVIDERS: Family Medicine
DX: K52.9 Noninfective gastroenteritis and colitis, unspecified (principal); R19.7 Diarrhea, unspecified
CPT/HCPCS: 0097U

== ENCOUNTER 2020-11-30 04:20 | Day surgery (SDC) | payer MEDICARE, OTHER | END 2020-11-30 23:09 | disposition home or self-care (01) | LOC: WOUND 04:20 | DX: L97.822 Non-pressure chronic ulcer of other part of left lower leg with fat layer exposed (principal); S81.802D Unspecified open wound, left lower leg, subsequent encounter; X58.XXXD Exposure to other specified factors, subsequent encounter; A49.02 Methicillin resistant Staphylococcus aureus infection, unspecified site; E66.01 Morbid (severe) obesity due to excess calories; I87.2 Venous insufficiency (chronic) (peripheral); Z88.5 Allergy status to narcotic agent; Z88.8 Allergy status to other drugs, medicaments and biological substances | CPT/HCPCS: A9270 ==

== ENCOUNTER 2020-12-24 03:56 | Day surgery (SDC) | payer MEDICARE, OTHER | END 2020-12-24 12:00 | disposition home or self-care (01) | LOC: WOUND 03:56 | DX: L97.822 Non-pressure chronic ulcer of other part of left lower leg with fat layer exposed (principal); S81.802D Unspecified open wound, left lower leg, subsequent encounter; X58.XXXD Exposure to other specified factors, subsequent encounter; A49.02 Methicillin resistant Staphylococcus aureus infection, unspecified site; E66.01 Morbid (severe) obesity due to excess calories; I87.2 Venous insufficiency (chronic) (peripheral) | CPT/HCPCS: A9270 ==

== ENCOUNTER 2020-12-31 06:20 | Day surgery (SDC) | payer MEDICARE, OTHER | END 2020-12-31 22:50 | disposition home or self-care (01) | LOC: WOUND 06:20 | DX: L97.822 Non-pressure chronic ulcer of other part of left lower leg with fat layer exposed (principal); L89.322 Pressure ulcer of left buttock, stage 2; L89.312 Pressure ulcer of right buttock, stage 2; S81.802D Unspecified open wound, left lower leg, subsequent encounter; X58.XXXD Exposure to other specified factors, subsequent encounter; A49.02 Methicillin resistant Staphylococcus aureus infection, unspecified site; E66.01 Morbid (severe) obesity due to excess calories; I87.2 Venous insufficiency (chronic) (peripheral) | CPT/HCPCS: A9270 ==

== ENCOUNTER 2021-01-10 08:00 | Day surgery (SDC) | payer MEDICARE, OTHER | END 2021-01-10 23:59 | disposition home or self-care (01) | LOC: WOUND 08:00 | DX: L97.929 Non-pressure chronic ulcer of unspecified part of left lower leg with unspecified severity (principal); S81.802D Unspecified open wound, left lower leg, subsequent encounter; X58.XXXD Exposure to other specified factors, subsequent encounter; A49.02 Methicillin resistant Staphylococcus aureus infection, unspecified site; E66.01 Morbid (severe) obesity due to excess calories; I87.2 Venous insufficiency (chronic) (peripheral) ==

== ENCOUNTER 2021-02-08 01:44 | Day surgery (SDC) | payer MEDICARE, OTHER | END 2021-02-08 23:18 | disposition home or self-care (01) | LOC: WOUND 01:44 | DX: L97.822 Non-pressure chronic ulcer of other part of left lower leg with fat layer exposed (principal); L89.322 Pressure ulcer of left buttock, stage 2; L89.312 Pressure ulcer of right buttock, stage 2; S81.802D Unspecified open wound, left lower leg, subsequent encounter; X58.XXXD Exposure to other specified factors, subsequent encounter; A49.02 Methicillin resistant Staphylococcus aureus infection, unspecified site; E66.01 Morbid (severe) obesity due to excess calories; I87.2 Venous insufficiency (chronic) (peripheral) | CPT/HCPCS: A9270 ==

== ENCOUNTER 2021-02-13 00:41 | Day surgery (SDC) | payer MEDICARE, OTHER | END 2021-02-13 23:09 | disposition home or self-care (01) | LOC: WOUND 00:41 | DX: L97.822 Non-pressure chronic ulcer of other part of left lower leg with fat layer exposed (principal); S81.802D Unspecified open wound, left lower leg, subsequent encounter; X58.XXXD Exposure to other specified factors, subsequent encounter; A49.02 Methicillin resistant Staphylococcus aureus infection, unspecified site; E66.01 Morbid (severe) obesity due to excess calories; I87.2 Venous insufficiency (chronic) (peripheral) | CPT/HCPCS: A9270 ==

== ENCOUNTER 2021-03-11 10:04 | Emergency (ER) | payer MEDICARE, OTHER ==
[~2021-03-11] VITALS: Ht 188 cm; Wt 145.2 kg
[2021-03-11 11:42] LABS: Source, Urine Catheter
[2021-03-11 11:48] LABS: Appearance, Urine Clear (Clear); Bilirubin, Urine Neg (Neg); Blood, Urine Neg (Neg); Color, Urine Yellow (P-Yellow); Glucose Qualitative, Urine Neg (Neg); Ketones, Urine Neg (Neg); Leukocyte Esterase, Urine 2+ (Neg); Nitrite, Urine Neg (Neg); Protein, Urine Neg (Neg); Urobilinogen, Urine 1+ (Normal)
[2021-03-11 12:02] LABS: Bacteria Many /hpf; Red Blood Cells, Urine 0-2 /hpf (0-2); Squamous Epithelial Cells Few /hpf (Few)
[2021-03-11 12:03] LABS: Amorphous Light (0-Heavy)
[2021-03-11] MEDS ORDERED: OXYC5 PO (12:21)
[2021-03-11] MEDS ORDERED: NITR100CA PO (13:20)
== END 2021-03-11 15:56 | disposition home or self-care (01) ==
LOC: ER 10:04
PROVIDERS: Emergency Medicine
DX: T83.098A Other mechanical complication of other urinary catheter, initial encounter (principal); N39.0 Urinary tract infection, site not specified; Z88.5 Allergy status to narcotic agent; Z88.8 Allergy status to other drugs, medicaments and biological substances; Z79.899 Other long term (current) drug therapy; G40.909 Epilepsy, unspecified, not intractable, without status epilepticus; I10 Essential (primary) hypertension; G62.9 Polyneuropathy, unspecified; Z86.711 Personal history of pulmonary embolism; Z86.718 Personal history of other venous thrombosis and embolism; K21.9 Gastro-esophageal reflux disease without esophagitis; F17.220 Nicotine dependence, chewing tobacco, uncomplicated
CPT/HCPCS: 51702; 51798; 81001; 87077; 87086; 87186; 99283-25

== ENCOUNTER 2021-03-22 06:08 | Day surgery (SDC) | payer MEDICARE, OTHER ==
[~2021-03-22 06:08] MED LIST changes: +NITR100CA PO; +OXYC5 PO
== END 2021-03-22 23:40 | disposition home or self-care (01) ==
LOC: WOUND 06:08
DX: L97.822 Non-pressure chronic ulcer of other part of left lower leg with fat layer exposed (principal); A49.02 Methicillin resistant Staphylococcus aureus infection, unspecified site; E66.01 Morbid (severe) obesity due to excess calories; I87.2 Venous insufficiency (chronic) (peripheral); L89.323 Pressure ulcer of left buttock, stage 3; L89.313 Pressure ulcer of right buttock, stage 3; G94 Other disorders of brain in diseases classified elsewhere

== ENCOUNTER 2021-03-29 05:21 | Day surgery (SDC) | payer MEDICARE, OTHER | END 2021-03-29 12:00 | disposition home or self-care (01) | LOC: WOUND 05:21 | DX: L97.822 Non-pressure chronic ulcer of other part of left lower leg with fat layer exposed (principal); S81.802D Unspecified open wound, left lower leg, subsequent encounter; A49.02 Methicillin resistant Staphylococcus aureus infection, unspecified site; E66.01 Morbid (severe) obesity due to excess calories; I87.2 Venous insufficiency (chronic) (peripheral); G94 Other disorders of brain in diseases classified elsewhere; Z16.12 Extended spectrum beta lactamase (ESBL) resistance; Z87.2 Personal history of diseases of the skin and subcutaneous tissue; Z68.41 Body mass index [BMI] 40.0-44.9, adult | CPT/HCPCS: A9270 ==

== ENCOUNTER 2021-04-12 00:42 | Day surgery (SDC) | payer MEDICARE, OTHER | END 2021-04-12 23:33 | disposition home or self-care (01) | LOC: WOUND 00:42 | DX: L97.822 Non-pressure chronic ulcer of other part of left lower leg with fat layer exposed (principal); S81.802D Unspecified open wound, left lower leg, subsequent encounter; A49.02 Methicillin resistant Staphylococcus aureus infection, unspecified site; Z16.12 Extended spectrum beta lactamase (ESBL) resistance; E66.01 Morbid (severe) obesity due to excess calories; I87.2 Venous insufficiency (chronic) (peripheral); L89.323 Pressure ulcer of left buttock, stage 3; L89.313 Pressure ulcer of right buttock, stage 3; G94 Other disorders of brain in diseases classified elsewhere; X58.XXXD Exposure to other specified factors, subsequent encounter ==

== ENCOUNTER → 2021-04-16 | Outpatient (CLI) | payer MEDICARE, OTHER ==
[2021-04-16 14:56] LABS: Appearance, Urine Cloudy (Clear); Bilirubin, Urine Neg (Neg); Blood, Urine 5+ (Neg); Color, Urine Amber (P-Yellow); Glucose Qualitative, Urine Neg (Neg); Ketones, Urine 1+ (Neg); Leukocyte Esterase, Urine 3+ (Neg); Nitrite, Urine Pos (Neg); Protein, Urine 3+ (Neg); Specific Gravity, Urine 1.025 (1.003-1.022); Urobilinogen, Urine 2+ (Normal)
[2021-04-16 15:16] LABS: Bacteria Many /hpf; Red Blood Cells, Urine 25-50 /hpf (0-2); Squamous Epithelial Cells Rare /hpf (Few)
[2021-04-16 15:17] LABS: Granular Casts 0-2 /lpf (0)
== END | disposition home or self-care (01) ==
LOC: LAB 10:15 → LAB SHORT 10:15
PROVIDERS: Family Medicine
DX: N39.0 Urinary tract infection, site not specified (principal)
CPT/HCPCS: 81001; 87086

== ENCOUNTER 2021-04-22 15:38 | Emergency (ER) | payer MEDICARE, OTHER ==
[~2021-04-22] VITALS: Ht 193 cm; Wt 145.2 kg
[2021-04-22 16:20] LABS: Source, Urine Foley catheter
[2021-04-22 16:32] LABS: Appearance, Urine Hazy (Clear); Bilirubin, Urine Neg (Neg); Blood, Urine 5+ (Neg); Color, Urine Brown (P-Yellow); Glucose Qualitative, Urine Neg (Neg); Ketones, Urine Neg (Neg); Leukocyte Esterase, Urine 3+ (Neg); Nitrite, Urine Pos (Neg); Protein, Urine 3+ (Neg); Specific Gravity, Urine 1.015 (1.003-1.022); Urobilinogen, Urine 1+ (Normal)
[2021-04-22 16:34] LABS: Bacteria Mod /hpf; Red Blood Cells, Urine 50-100 /hpf (0-2); Squamous Epithelial Cells Rare /hpf (Few)
[2021-04-22 16:35] LABS: Amorphous Light (0-Heavy)
[2021-04-22] MEDS ORDERED: CEPH500 PO (16:44)
== END 2021-04-22 18:19 | disposition home or self-care (01) ==
LOC: ER 15:38
PROVIDERS: Emergency Medicine
DX: T83.091A Other mechanical complication of indwelling urethral catheter, initial encounter (principal); N39.0 Urinary tract infection, site not specified; G40.909 Epilepsy, unspecified, not intractable, without status epilepticus; I10 Essential (primary) hypertension; K21.9 Gastro-esophageal reflux disease without esophagitis; F17.220 Nicotine dependence, chewing tobacco, uncomplicated; G62.9 Polyneuropathy, unspecified; Z79.891 Long term (current) use of opiate analgesic; Z79.899 Other long term (current) drug therapy; Z88.5 Allergy status to narcotic agent; Z88.6 Allergy status to analgesic agent; Z88.8 Allergy status to other drugs, medicaments and biological substances
CPT/HCPCS: 51702; 81001; 87077; 87086; 87186; 99284-25; A9270

== ENCOUNTER 2021-04-26 03:03 | Day surgery (SDC) | payer MEDICARE, OTHER | END 2021-04-26 22:57 | disposition home or self-care (01) | LOC: WOUND 03:03 | DX: L97.822 Non-pressure chronic ulcer of other part of left lower leg with fat layer exposed (principal); A49.02 Methicillin resistant Staphylococcus aureus infection, unspecified site; E66.01 Morbid (severe) obesity due to excess calories; I87.2 Venous insufficiency (chronic) (peripheral); L89.323 Pressure ulcer of left buttock, stage 3; L89.313 Pressure ulcer of right buttock, stage 3; G94 Other disorders of brain in diseases classified elsewhere; Z16.12 Extended spectrum beta lactamase (ESBL) resistance ==

== ENCOUNTER → 2021-05-02 | Outpatient (CLI) | payer MEDICARE, OTHER ==
[2021-05-03 12:53] LABS: Adenovirus F 40/41 Not Detected (NOT DETECT); Astrovirus Not Detected (NOT DETECT); Campylobacter Sp Not Detected (NOT DETECT); Cryptosporidium Not Detected (NOT DETECT); Cyclospora Cayetanensis Not Detected (NOT DETECT); E. Coli O157 Not Detected (NOT DETECT); Entamoeba Histolytica Not Detected (NOT DETECT); Enteroaggregative E. coli-EAEC Not Detected (NOT DETECT); Enteropathogenic E. coli-EPEC Not Detected (NOT DETECT); Enterotoxigenic E. coli-ETEC Not Detected (NOT DETECT); Giardia Lamblia Not Detected (NOT DETECT); Norovirus GI/GII Not Detected (NOT DETECT); Plesiomonas Shigelloides Not Detected (NOT DETECT); Rotavirus A Not Detected (NOT DETECT); Salmonella Sp Not Detected (NOT DETECT); Sapovirus Not Detected (NOT DETECT); Shiga Toxin-prod E. coli-STEC Not Detected (NOT DETECT); Shigella/Enteroin E. coli-EIEC Not Detected (NOT DETECT); Vibrio Cholerae Not Detected (NOT DETECT); Vibrio Sp Not Detected (NOT DETECT); Yersinia Enterocolitica Not Detected (NOT DETECT)
== END | disposition home or self-care (01) ==
LOC: LAB SHORT 13:52 → LAB 13:52
PROVIDERS: Physician Assistant Medical
DX: K52.9 Noninfective gastroenteritis and colitis, unspecified (principal)
CPT/HCPCS: 0097U

== ENCOUNTER 2021-05-15 03:44 | Day surgery (SDC) | payer MEDICARE, OTHER | END 2021-05-15 22:55 | disposition home or self-care (01) | LOC: WOUND 03:44 | DX: L97.822 Non-pressure chronic ulcer of other part of left lower leg with fat layer exposed (principal); L89.323 Pressure ulcer of left buttock, stage 3; L89.313 Pressure ulcer of right buttock, stage 3; S81.802D Unspecified open wound, left lower leg, subsequent encounter; A49.02 Methicillin resistant Staphylococcus aureus infection, unspecified site; E66.01 Morbid (severe) obesity due to excess calories; I87.2 Venous insufficiency (chronic) (peripheral); G94 Other disorders of brain in diseases classified elsewhere ==

== ENCOUNTER 2021-06-05 00:19 | Day surgery (SDC) | payer MEDICARE, OTHER | END 2021-06-05 22:52 | disposition home or self-care (01) | LOC: WOUND 00:19 | DX: Z09 Encounter for follow-up examination after completed treatment for conditions other than malignant neoplasm (principal); Z87.2 Personal history of diseases of the skin and subcutaneous tissue; E66.01 Morbid (severe) obesity due to excess calories; I87.2 Venous insufficiency (chronic) (peripheral); G94 Other disorders of brain in diseases classified elsewhere; L89.323 Pressure ulcer of left buttock, stage 3; L89.313 Pressure ulcer of right buttock, stage 3; Z68.41 Body mass index [BMI] 40.0-44.9, adult | CPT/HCPCS: G0463 ==